=== PATIENT | female | born 1945 | race Caucasian/White ===

== ENCOUNTER 2017-11-22 10:33 | Emergency (ER) | payer MEDICARE, BC ==
[2017-11-22 11:07] VITALS: BP 131/63
--- NOTE | 2017-11-22 12:53 | UC ---
Respiratory Complaint HPI - HPI Summary HPI Summary: Patient presents with a past medical history of foot allergies, causing rhinorrhea and chest congestion. She admits that during the holidays she will eat "alot of junk", and presents today with complaints of increase nasal discharge, post nasal drip and chest congestion that "sits right at the base of her throat". She denies fever, chills, chest pain, dyspnea, abdominal pain, nausea, vomiting or diarrhea. She states these symptoms are consistent with what she has had in the past. - History of Current Complaint Chief Complaint: UCRespiratory Stated Complaint: SINUS ISSUE COUGH Time Seen by Provider: 11/22/17 12:03 Hx Obtained From: Patient Hx Last Menstrual Period: Years ago. ?: No Onset/Duration: Gradual Onset, Lasting Weeks Timing: Constant Pain Intensity: 0 Pain Scale Used: 0-10 Numeric Character: Cough: Productive Aggravating Factors: Allergens, Recumbent Position Alleviating Factors: OTC Meds, Upright Position, Spontaneous Resolution Associated Signs And Symptoms: Positive: Negative, URI, Nasal Congestion, Sinus Discomfort - Risk Factors Pulmonary Embolism Risk Factors: Negative Cardiac Risk Factors: Negative Pseudomonas Risk Factors: Negative Tuberculosis Risk Factors: Negative - Allergies/Home Medications Allergies/Adverse Reactions: Allergies Allergy/AdvReac Type Severity Reaction Status Date / Time Aspirin Allergy Severe Anaphylatic Verified 09/19/16 15:31 Shock Ibuprofen Allergy Severe Anaphylatic Verified 09/19/16 15:31 Shock Home Medications: Home Medications Phenylephrine W/ [id number] [Tussin Cf Cough & Cold Ad 5-10-100 mg/5Ml] 11/22/17 [ History] PMH/Surg Hx/FS Hx/Imm Hx Previously Healthy: Yes Other History Of: Negative For: HIV, Hepatitis B, Hepatitis C - Surgical History Surgical History: Yes Surgery Procedure, Year, and Place: tubal ligation - Family History Known Family History: Negative: Cardiac Disease, Hypertension - Social History Occupation: Retired Alcohol Use: Rare Substance Use Type: None Smoking Status (MU): Light Every Day Tobacco Smoker Type: Cigarettes Amount Used/How Often: 1-2 cigs per day Length of Time of Smoking/Using Tobacco: 50 years Have You Smoked in the Last Year: Yes Household Exposure Type: Cigarettes - Immunization History Most Recent Influenza Vaccination: 08/27/14 Review of Systems Constitutional: Negative Skin: Negative Eyes: Negative ENT: Ear Ache, Nasal Discharge, Sinus Congestion, Sinus Pain/Tenderness Respiratory: Cough Cardiovascular: Negative Gastrointestinal: Negative Genitourinary: Negative Motor: Negative Neurovascular: Negative Musculoskeletal: Negative Neurological: Negative Psychological: Negative Is Patient Immunocompromised?: No All Other Systems Reviewed And Are Negative: Yes Physical Exam Triage Information Reviewed: Yes Appearance: Well-Appearing Vital Signs: Initial Vital Signs Temp 98.6 F 11/22/17 11:01 Pulse 64 11/22/17 11:01 Resp 16 11/22/17 11:01 BP 131/63 11/22/17 11:01 Pulse Ox 99 11/22/17 11:01 Vital Signs Reviewed: Yes Eye Exam: Normal ENT Exam: Normal ENT: Positive: Pharyngeal erythema, Nasal congestion, Nasal drainage, TM bulging , TM dull, TM red, Hoarse voice, Sinus tenderness, Uvula midline Neck exam: Normal Neck: Positive: 1 Respiratory Exam: Normal Cardiovascular Exam: Normal Skin Exam: Normal UC Diagnostic Evaluation - Laboratory O2 Sat by Pulse Oximetry: 99 Respiratory Course/Dx - Course Course Of Treatment: Patient presents with a past medical history of food allergies that casue what appears to be a gustatory reponce and today she presents with five week onset complaints of increased nasal discharge, cough and post nasal drip. SHe has normal vital signs and is in no distress. She is going to be treated with zpk, and prednisone 20 mg twice daily for five days, for otitis media and bronchitis. I told her that if her symtpoms persist to follow up with ENT, she verbalized understanding and was in ageement with the discharge plan. - Differential Dx/Diagnosis Differential Diagnosis/HQI/PQRI: Bronchitis Provider Diagnoses: otitis media. bronchitis Discharge - Discharge Plan Condition: Stable Disposition: HOME Prescriptions: Azithromycin TAB* [Zithromax TAB (Z-KRISTINA) 250 mg #6 tabs] 250 mg PO DAILY #6 tab predniSONE TAB* [Deltasone TAB*] 10 mg PO BID #10 tab Patient Education Materials: Otitis Media (ED), Acute Bronchitis (ED) Referrals: Rusty Williamson DO [Primary Care Provider] - Additional Instructions: If your symptoms do not resolve follow up with your PCP.
== END 2017-11-22 12:19 | disposition home or self-care (01) ==
LOC: UCEAST 10:33
DX: J40 Bronchitis, not specified as acute or chronic (principal); H66.90 Otitis media, unspecified, unspecified ear; F17.210 Nicotine dependence, cigarettes, uncomplicated; Z88.6 Allergy status to analgesic agent
CPT/HCPCS: 99212; G0463

== ENCOUNTER 2017-12-06 13:27 | Emergency (ER) | payer MEDICARE, BC ==
[2017-12-06 13:37] VITALS: BP 126/60
[2017-12-06] MEDS ORDERED: Dextrose 50% Syringe 50 ML* 25 GM/50 ML SYRINGE IV PUSH ONE (14:33)
--- NOTE | 2017-12-06 14:51 | RAD ---
Indication: Cough. 2 views of the chest including dual energy PA views demonstrates no mediastinal shift. Heart is of normal size and configuration. Chronic interstitial disease is noted. No alveolar consolidation is noted. IMPRESSION: Chronic interstitial disease with no definite evidence of pneumonia.
--- NOTE | 2018-01-02 15:17 | UC ---
Respiratory Complaint HPI - HPI Summary HPI Summary: had similar sx end of October now URI Sx have returned - History of Current Complaint Hx Obtained From: Patient Hx Last Menstrual Period: Years ago. ?: No Onset/Duration: Gradual Onset Timing: Constant Severity Initially: Mild Severity Currently: Mild Pain Intensity: 0 Pain Scale Used: 0-10 Numeric Associated Signs And Symptoms: Positive: Negative <Freda Hammond - Last Filed: 01/02/18 15:29> <Sally Theodore - Last Filed: 01/02/18 15:34> - History of Current Complaint Chief Complaint: UCRespiratory Stated Complaint: URI Time Seen by Provider: 12/06/17 14:00 - Allergies/Home Medications Allergies/Adverse Reactions: Allergies Allergy/AdvReac Type Severity Reaction Status Date / Time MS Aspirin [Aspirin] Allergy Severe Anaphylatic Verified 09/19/16 15:31 Shock MS Ibuprofen [Ibuprofen] Allergy Severe Anaphylatic Verified 09/19/16 15:31 Shock PMH/Surg Hx/FS Hx/Imm Hx Previously Healthy: Yes Other History Of: Negative For: HIV, Hepatitis B, Hepatitis C - Surgical History Surgical History: Yes Surgery Procedure, Year, and Place: tubal ligation - Family History Known Family History: Negative: Cardiac Disease, Hypertension - Social History Occupation: Retired Lives: With Family Alcohol Use: Rare Substance Use Type: None Smoking Status (MU): Light Every Day Tobacco Smoker Type: Cigarettes Amount Used/How Often: 1-2 cigs per day Length of Time of Smoking/Using Tobacco: 50 years Have You Smoked in the Last Year: Yes Household Exposure Type: Cigarettes - Immunization History Most Recent Influenza Vaccination: 08/27/14 <Freda Hammond - Last Filed: 01/02/18 15:29> Review of Systems Constitutional: Negative Skin: Negative Eyes: Negative ENT: Sore Throat, Nasal Discharge Respiratory: Cough Cardiovascular: Negative Gastrointestinal: Negative Genitourinary: Negative Motor: Negative Neurovascular: Negative Musculoskeletal: Negative Neurological: Negative Psychological: Negative Is Patient Immunocompromised?: No All Other Systems Reviewed And Are Negative: Yes <Freda Hammond - Last Filed: 01/02/18 15:29> Physical Exam Triage Information Reviewed: Yes Appearance: Well-Appearing, No Pain Distress, Well-Nourished Vital Signs: Initial Vital Signs Temp 97.9 F 12/06/17 13:34 Pulse 74 12/06/17 13:34 Resp 18 12/06/17 13:34 BP 126/60 12/06/17 13:34 Pulse Ox 95 12/06/17 13:34 Vital Signs Reviewed: Yes Eye Exam: Normal Eyes: Positive: Conjunctiva Clear ENT Exam: Normal ENT: Positive: Normal ENT inspection, Hearing grossly normal, Pharynx normal, Nasal congestion, TMs normal, Uvula midline. Negative: Tonsillar swelling, Tonsillar exudate, Trismus, Muffled voice, Hoarse voice, Dental tenderness, Sinus tenderness Dental Exam: Normal Neck exam: Normal Neck: Positive: Supple, Nontender, No Lymphadenopathy Respiratory Exam: Normal Respiratory: Positive: Chest non-tender, Lungs clear, Normal breath sounds, No respiratory distress, No accessory muscle use Cardiovascular Exam: Normal Cardiovascular: Positive: RRR, No Murmur, Pulses Normal, Brisk Capillary Refill Musculoskeletal Exam: Normal Musculoskeletal: Positive: Strength Intact, ROM Intact Neurological Exam: Normal Neurological: Positive: Alert, Muscle Tone Normal Psychological Exam: Normal Skin Exam: Normal <Freda Hammond - Last Filed: 01/02/18 15:29> Vital Signs: Initial Vital Signs Temp 97.9 F 12/06/17 13:34 Pulse 74 12/06/17 13:34 Resp 18 12/06/17 13:34 BP 126/60 12/06/17 13:34 Pulse Ox 95 12/06/17 13:34 <Sally Theodore - Last Filed: 01/02/18 15:34> UC Diagnostic Evaluation - Laboratory O2 Sat by Pulse Oximetry: 95 <Freda Hammond - Last Filed: 01/02/18 15:29> Respiratory Course/Dx - Course Course Of Treatment: Flonase zyrtecgifty with pcp - Differential Dx/Diagnosis Provider Diagnoses: Allergic Rhinosinusitis <Freda Hammond - Last Filed: 01/02/18 15:29> Discharge <Freda Hammond - Last Filed: 01/02/18 15:29> <Sally Theodore - Last Filed: 01/02/18 15:34> - Discharge Plan Condition: Stable Disposition: HOME Prescriptions: Cetirizine* [ZyrTEC 10 MG TAB*] 10 mg PO DAILY #30 tab Fluticasone NASAL SPRAY 50MCG* [Flonase NASAL SPRAY 50MCG*] 2 spray BOTH NARES DAILY #1 btl Patient Education Materials: Chronic Cough (ED) Referrals: Rusty Williamson DO [Primary Care Provider] - 1 Week Attestation Statement User Type: Provider - I was available for consult. This patient was seen by the MARIANNE. The patient was not presented to, seen by, or examined by me. Cain <Sally Theodore - Last Filed: 01/02/18 15:34>
== END 2017-12-06 15:03 | disposition home or self-care (01) ==
LOC: UCEAST 13:27
DX: J30.9 Allergic rhinitis, unspecified (principal); J84.9 Interstitial pulmonary disease, unspecified; J02.9 Acute pharyngitis, unspecified; R05 Cough; Z88.6 Allergy status to analgesic agent; F17.210 Nicotine dependence, cigarettes, uncomplicated
CPT/HCPCS: 71046; 99212; G0463

== ENCOUNTER 2018-06-21 13:23 | Emergency (ER) | payer MEDICARE, BC ==
--- OUTSIDE RECORDS SUMMARY | 2018-06-21 13:30 | XMS REPORT ---
:1945 External Reference #:[id number] Author Organization [facility] Address [address] [place] [address] Phone [phone] Care Team Providers Name Role Phone HCP given Primary Care Physician Unavailable Payers Type Date Identification Numbers Payment Provider Subscriber Medicare Primary Effective: Policy Number: [facility] Nargis Ty 2010 [id number] Services PayID: [id number] [address] [place] [address] Medigap Part B Policy Number: [id number] [facility] Leandro Ty PayID: [id number] [address] [address] [place] [address] Problems Date Description Provider Status Onset: 07/06/2011 Onychomycosis Blair Sarabia Active Onset: 02/10/2015 Prolapse of urethra Rusty Williamson 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 Active Onset: 02/10/2015 Internal hemorrhoids without Rusty Williamson D.O. Active complication Family History Date Family Member(s) Problem(s) Comments General 2 living sisters and 1 brother are well Father 68 cirrhosis Mother Allergic Rhinitis Mother Glaucoma Mother Hypercholesterolemia Mother 72 pancreatic cancer, vascular disease, had strokes post hip fracture First Son Allergic Rhinitis First Son Alvaro 03-07-65 Second Son Jatinder 10-27-70 First Brother 59 heart disease alpha 1 anti-trypsin deficiency, cardiac disease First Sister 53 alpha 1 anti-trypsin deficiency, COPD Paternal Grandmother diabetic Maternal Grandfather cancer, unknown primary Social History Type Date Description Comments Education trade school General with 2 sons, 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 Bakes a lot for the [employer], summer busy. Cigarette Use 2006 Current Cigarette Smoker 1-5 resumed smoking after one Cigarettes Daily year off. 2 cigarettes ETOH Use Rare Alcohol Use Recreational Drug Use Denies Drug Use Smoking Light tobacco smoker (10 or 2 cigarettes a day 1ppw at fewer cigarettes/day) age 25. currently 1/2ppw. < 30pack year history Daily Caffeine Does not consume caffeine Sun Exposure Uses sunscreen with greater than 30 SPF Seat Belt/Car Seat Always uses a seat belt Contraceptive Methods Does not currently use any method of control Age 1st [place] First intercourse was at age 20 # Partners in a Lifetime The patient has had 1 sexual partner Allergies, Adverse Reactions, Alerts Date Description Reaction Status Severity Comments 07/09/2012 Aspirin active 07/09/2012 Ibuprofen active 07/08/2010 Mucinex active Medications Medication Date Status Form Strength Qnty SIG Indications Ordering Provider Ginkgo Biloba 05/21/ Active Capsules 120mg Daily Unknown 2017 Echinacea 05/21/ Active Capsules 500mg as Needed Unknown 2017 Resveratrol 05/21/ Active Capsules 250mg 2 capsules Unknown 2017 (500 mg) daily Krill Oil Antwon 05/07/ Active Capsules 350mg 1 daily Unknown Red 2018 Coq10 05/07/ Active 50mg 1 po daily Unknown 2018 Zyrtec Allergy 05/07/ Active Tablets 10mg 1 by mouth Unknown 2018 every day Multivitamin 05/07/ Active Chewtabs 1 daily Unknown Gummies Womens 2018 Vitamin B 07/09/ Active Tablets 1 tab q day Unknown Complex 2013 Pycnogenol 07/09/ Active 60mg 1 q day Unknown 2012 Vitamin D-3 07/05/ Active Tablets 1000Unit OTC One Tablet Unknown 2010 PO Daily Probiotic 07/05/ Active Capsules 30Billion OTC One Tab PO Unknown Acidophilus 2010 Daily Grape Seed 07/05/ Active Capsules 50mg OTC 1 po prn Unknown 2010 Lowman 07/05/ Active 150mg OTC One PO Unknown 2010 Daily as Needed Silver Biotics 07/05/ Active OTC 1 tsp. Unknown 2010 daily prn Vit C 06/19/ Active 500mg 0unit 2 po qd mack 2005 s Tylenol 06/19/ Active Suppositor 325mg 10uni 1/2 Q 4H mack 2005 ts prn Temp N-Acetyl / Active 600mg otc one po Unknown Cystine 0000 daily Calcium With 00/00/ Active 1000mg/50 OTC six po Unknown Mag Citrate And 0000 0mg/100 daily D3 Iu Valacyclovir 02/07/ Hx Tablets 1gm 21tab 1 three B02.9 Sopchak, HCL 2015 - s times a day Rusty, 02/14/ for 7 days D.O. 2015 Lidocaine 02/07/ Hx Patches 5% 90uni apply 12 B02.9 Clay, 2015 - ts hours on , 02/14/ hours off D.O. 2015 as needed to area of pain. Gabapentin 02/07/ Hx Capsules 100mg 90cap 1 tabs by B02.9 Clay 2015 - mouth three Rusty, 03/09/ times a day D.O. 2015 Hydrocodone-Aurelio 01/24/ Hx Tablets 5-325mg Take 1-2 Unknown taminophen 2015 - Tablets By 01/30/ Mouth Every 2015 6 Hours as Needed For Pain Baclofen 12/31/ Hx Tablets 10mg 30tab take 1 M54.5 Clay 2015 - tablet by Rusty, 12/31/ mouth at D.O. 2016 night for muscle spasms Nasonex 03/30/ Hx Suspension 50mcg/Act 3unit 2 sprays to 461.0 Clay 2014 - both Rusty, 07/15/ nostrils D.O. 2014 twice daily Fluticasone 03/30/ Hx Suspension 50mcg/Act 3unit 2 sprays Clay Propionate 2014 - into each Rusty, 07/15/ nostril D.O. 2014 twice a day for nasal congestion Amoxicillin/Cla 03/26/ Hx Tablets 875-125mg 20tab 1 tablet Unknown vulanate 2014 - twice daily Potassium 04/05/ until 2015 finished Gavilyte-C 03/02/ Hx Solution 240gm take as Unknown 2015 - Rec directed 2014 Alendronate 08/26/ Hx Tablets 35mg 12tab 1 tab per 733.00 Silcoff, Sodium 2012 - s week 30 Yaron, 07/11/ minutes M.D. 2013 before meal, with 8 oz water. do not lie down for 30 minutes after taking Triple Arrey 07/09/ Hx Capsules DR 1000mg 1 q day Unknown Complex 2012 - 2017 Terbinafine HCL 12/10/ Hx Tablets 250mg 90tab 1 po qd 110.1 Rosinaharish 2013 - s sterling, 07/10/ Louis, 2013 DPM Vitamin B1 07/05/ Hx Tablets 100mg OTC 1 po qd Unknown 2010 - 2012 Pycnogenol 07/05/ Hx Capsules 30mg OTC 2 Tabs PO Unknown 2010 - Daily 2011 Echinacea Herb 07/05/ Hx Capsules 400mg OTC 3-6 X Day Unknown 2010 - prn When 07/10/ Coming Down 2012 With Illness Allergy Relief 07/05/ Hx Tablets 25mg OTC 1-2 Tabs PO Unknown 2010 - Daily prn 2017 Krill Oil 07/05/ Hx Capsules 1000mg 2 Tabs PO Unknown 2010 - Daily 2012 Miracle 2000 Hx one capful Unknown Liquid 2010 - daily Multivitamin 2017 Cuercetin 07/05/ Hx 500mg otc 2 po daily Unknown 2010 - 2012 Azithromycin 07/26/ Hx Tablets 250mg 6tabs 2 tabs day 466.0 Sang, 2009 - one, one Yaron, 08/03/ tab days M.D. 2009 2-5 Vit E 06/19/ Hx 400Iu 1 [facility] 2005 - 2012 Garlic 06/19/ Hx Tablets [facility] - 2012 Ginko Biloba 06/19/ Hx Capsules 60mg 2 PO qd klepack 24% 2005 - 2012 Triple Arrey 06/19/ Hx 1200mg 1 PO qd klepack 2005 - 2012 Calcium 06/19/ Hx Gelcaps 550mg;125 [facility] Carbonate & 2006 - mg Magnesium 07/05/ Hydroxide 2010 OTC 00/00/ Hx prn Unknown Decongestant - 2015 OTC 00/00/ Hx prn Unknown Antihistamine 2015 Colloidal / Hx as directed Unknown Silver - 2014 Immunizations CPT Code Status Date Vaccine Lot # [id number] Given 07/26/2017 Influenza Virus Vaccine, Quadrivalent, Split, [id number] Preservative Free 60034 Given 09/26/2016 Influenza Virus Vaccine, Quadrivalent, Split, Preservative Free 84401 Given 08/18/2015 Flu, Split Virus 3Yrs 03416 Given 07/16/2015 Prevnar 13 [id number] 00858 Given 09/30/2014 Flu, Split Virus 3Yrs 75028 Given 09/15/2013 Flu, Split Virus 3Yrs 50117 Given 07/10/2013 Zostavax [id number] 86888 Given 09/03/2012 Flu, Split Virus 3Yrs 50505 Given 07/09/2012 Pneumococcal Immunization [id number] 34579 Given 10/17/2011 Flu, Split Virus 3Yrs 76406 Given 11/15/2007 Td Immunization TD-166 Vital Signs Date Vital Result Comment 05/22/2018 BP Systolic 122 mmHg BP Diastolic 60 mmHg Weight 129.00 lb 05/08/2018 BP Systolic 138 mmHg BP Diastolic 72 mmHg Height 64 inches 5'4" Weight 130.00 lb BMI (Body Mass Index) 22.3 kg/m2 07/26/2017 BP Systolic 124 mmHg BP Diastolic 58 mmHg Height 65 inches 5'5" with sneakers Weight 134.00 lb with sneakers BMI (Body Mass Index) 22.3 kg/m2 07/25/2016 BP Systolic 130 mmHg BP Diastolic 70 mmHg Height 65.25 inches 5'5.25" Weight 142.00 lb BMI (Body Mass Index) 23.4 kg/m2 03/09/2016 BP Systolic 116 mmHg BP Diastolic 58 mmHg Weight 141.00 lb w/shoes 02/08/2016 BP Systolic 131 mmHg BP Diastolic 62 mmHg Heart Rate 76 /min Body Temperature 98.2 F 02/04/2016 BP Systolic 128 mmHg BP Diastolic 64 mmHg Heart Rate 73 /min Height 65.75 inches 5'5.75" with shoes Weight 145.00 lb with shoes BMI (Body Mass Index) 23.6 kg/m2 12/31/2015 Weight 147.00 lb 07/16/2015 BP Systolic 126 mmHg BP Diastolic 62 mmHg Height 65.5 inches 5'5.50" shoes on Weight 138.00 lb shoes on BMI (Body Mass Index) 22.6 kg/m2 03/30/2015 BP Systolic 136 mmHg BP Diastolic 83 mmHg Heart Rate 75 /min Body Temperature 97.7 F Weight 139.00 lb 02/10/2015 BP Systolic 120 mmHg BP Diastolic 70 mmHg Body Temperature 98.1 F Height 64.50 inches 5'4.50" Weight 142.00 lb BMI (Body Mass Index) 24.0 kg/m2 07/14/2014 BP Systolic 116 mmHg BP Diastolic 60 mmHg Heart Rate 77 /min Height 64.5 inches 5'4.50" Weight 133.00 lb BMI (Body Mass Index) 22.5 kg/m2 07/10/2013 BP Systolic 138 mmHg BP Diastolic 64 mmHg Heart Rate 68 /min Height 64.25 inches 5'4.25" Weight 136.00 lb BMI (Body Mass Index) 23.2 kg/m2 12/10/2012 BP Systolic 134 mmHg BP Diastolic 62 mmHg Heart Rate 72 /min Height 64.5 inches 5'4.50" Weight 137.00 lb BMI (Body Mass Index) 23.2 kg/m2 07/09/2012 BP Systolic 130 mmHg BP Diastolic 70 mmHg Heart Rate 75 /min Height 64.5 inches 5'4.50" Weight 142.00 lb BMI (Body Mass Index) 24.0 kg/m2 07/06/2011 BP Systolic 131 mmHg BP Diastolic 62 mmHg Heart Rate 72 /min Height 64.50 inches 5'4.50" Weight 145.00 lb BMI (Body Mass Index) 24.5 kg/m2 07/26/2010 BP Systolic 112 mmHg BP Diastolic 66 mmHg Heart Rate 72 /min O2 % BldC Oximetry 96 % Body Temperature 98.3 F Weight 146.00 lb 05/03/2010 BP Systolic 100 mmHg BP Diastolic 52 mmHg Heart Rate 70 /min Height 64.25 inches 5'4.25" Weight 146.00 lb BMI (Body Mass Index) 24.9 kg/m2 Last Menstrual Period 0 05/12/2009 BP Systolic 120 mmHg BP Diastolic 62 mmHg Height 65 inches 5'5" Weight 143.00 lb BMI (Body Mass Index) 23.8 kg/m2 05/27/2008 BP Systolic 120 mmHg BP Diastolic 68 mmHg Body Temperature 98.4 F Height 64 inches 5'4" Weight 130.00 lb BMI (Body Mass Index) 22.3 kg/m2 Last Menstrual Period 0 05/05/2008 BP Systolic 104 mmHg BP Diastolic 54 mmHg Height 64 inches 5'4" Weight 134.50 lb BMI (Body Mass Index) 23.1 kg/m2 11/15/2007 BP Systolic 122 mmHg BP Diastolic 64 mmHg Body Temperature 97.7 F Height 64 inches 5'4" Weight 143.50 lb BMI (Body Mass Index) 24.6 kg/m2 07/11/2006 BP Systolic 112 mmHg BP Diastolic 56 mmHg Height 64 inches 5'4" Weight 156.00 lb BMI (Body Mass Index) 26.8 kg/m2 06/19/2006 BP Systolic 110 mmHg BP Diastolic 66 mmHg Height 64 inches 5'4" Weight 158.00 lb BMI (Body Mass Index) 27.1 kg/m2 Last Menstrual Period 0 Results Test Date Test Result H/L Range Note Laboratory test finding 05/14/2018 C Difficile B PCR SEE RESULT BELOW 1 , 2 Stool Calprotectin 60.7 g/G 1, 3 Stool Occult Blood 05/14/2018 Stool Occult Blood, SEE RESULT 1, 4 Diag Diag BELOW Laboratory test 03/07/2018 Hemoglobin A1c 5.8 % High 4.0-5.6 5 finding (Glyco HGB) Laboratory test 08/09/2017 Vitamin D Total 36.6 ng/mL 30-50 6 finding 25(Oh) CBC Auto Diff 08/09/2017 White Blood Count 8.0 10^3/uL 3.5-10.8 Red Blood Count 5.09 10^6/uL 4.0-5.4 Hemoglobin 14.2 g/dL 12.0-16.0 Hematocrit 43 % 35-47 Mean Corpuscular Volume 85 fL 80-97 Mean Corpuscular Hemoglobin 28 pg 27-31 Mean Corpuscular HGB Conc 33 g/dL 31-36 Red Cell Distribution Width 14 % 10.5-15 Platelet Count 228 10^3/uL 150-450 Mean Platelet Volume 12 um3 High 7.4-10.4 7 Abs Neutrophils 5.6 10^3/uL 1.5-7.7 Abs Lymphocytes 1.6 10^3/uL 1.0-4.8 Abs Monocytes 0.5 10^3/uL 0-0.8 Abs Eosinophils 0.3 10^3/uL 0-0.6 Abs Basophils 0.1 10^3/uL 0-0.2 Abs Nucleated RBC 0.03 10^3/uL Granulocyte % 69.6 % 38-83 Lymphocyte % 20.2 % Low 25-47 Monocyte % 5.9 % 1-9 Eosinophil % 3.2 % 0-6 Basophil % 1.1 % 0-2 Nucleated Red Blood Cells % 0.4 Comp Metabolic Panel 08/09/2017 Sodium 139 mmol/L 133-145 Potassium 4.2 mmol/L 3.5-5.0 Chloride 102 mmol/L 101-111 Co2 Carbon Dioxide 33 mmol/L High 22-32 Anion Gap 4 mmol/L 2-11 Glucose 84 mg/dL 70-100 Blood Urea Nitrogen 17 mg/dL 6-24 Creatinine 1.05 mg/dL High 0.51-0.95 BUN/Creatinine Ratio 16.2 8-20 Calcium 9.5 mg/dL 8.6-10.3 Total Protein 6.8 g/dL 6.4-8.9 Albumin 4.1 g/dL 3.2-5.2 Globulin 2.7 g/dL 2-4 Albumin/Globulin Ratio 1.5 1-3 Total Bilirubin 0.60 mg/dL 0.2-1.0 Alkaline Phosphatase 71 U/L 34-104 Alt 13 U/L 7-52 Ast 20 U/L 13-39 Egfr Non- 51.5 >60 Egfr 66.3 >60 8 Lipid Profile (Trig/Chol/HDL) 08/09/2017 Triglycerides 107 mg/dL 9 Cholesterol 189 mg/dL 10 HDL Cholesterol 43.8 mg/dL 11 LDL Cholesterol 124 mg/dL 12 Laboratory test finding 08/09/2017 TSH (Thyroid Stim 3.89 mcIU/mL 0.34- 5.60 13 Horm) Laboratory test finding 08/04/2016 Vitamin D Total 25(Oh) 37.9 ng/mL 30- 50 CBC Auto Diff 08/04/2016 White Blood Count 7.6 10^3/uL 3.5-10.8 Red Blood Count 4.78 10^6/uL 4.0-5.4 Hemoglobin 13.3 g/dL 12.0-16.0 Hematocrit 41 % 35-47 Mean Corpuscular Volume 85 fL 80-97 Mean Corpuscular Hemoglobin 28 pg 27-31 Mean Corpuscular HGB Conc 33 g/dL 31-36 Red Cell Distribution Width 14 % 10.5-15 Platelet Count 224 10^3/uL 150-450 Mean Platelet Volume 11 um3 High 7.4-10.4 Abs Neutrophils 4.8 10^3/uL 1.5-7.7 Abs Lymphocytes 2.0 10^3/uL 1.0-4.8 Abs Monocytes 0.5 10^3/uL 0-0.8 Abs Eosinophils 0.1 10^3/uL 0-0.6 Abs Basophils 0.1 10^3/uL 0-0.2 Abs Nucleated RBC 0.01 10^3/uL Granulocyte % 63.0 % 38-83 Lymphocyte % 26.5 % 25-47 Monocyte % 6.9 % 1-9 Eosinophil % 1.8 % 0-6 Basophil % 1.8 % 0-2 Nucleated Red Blood Cells % 0.1 Comp Metabolic Panel 08/04/2016 Sodium 138 mmol/L 133-145 Potassium 4.5 mmol/L 3.5-5.0 Chloride 102 mmol/L 101-111 Co2 Carbon Dioxide 29 mmol/L 22-32 Anion Gap 7 mmol/L 2-11 Glucose 71 mg/dL 70-100 Blood Urea Nitrogen 16 mg/dL 6-24 Creatinine 0.98 mg/dL High 0.51-0.95 BUN/Creatinine Ratio 16.3 8-20 Calcium 9.3 mg/dL 8.6-10.3 Total Protein 6.5 g/dL 6.4-8.9 Albumin 3.9 g/dL 3.2-5.2 Globulin 2.6 g/dL 2-4 Albumin/Globulin Ratio 1.5 1-3 Total Bilirubin 0.80 mg/dL 0.2-1.0 Alkaline Phosphatase 63 U/L 34-104 Alt 13 U/L 7-52 Ast 20 U/L 13-39 Egfr Non- 55.9 >60 Egfr 71.9 >60 14 Laboratory test 08/04/2016 TSH (Thyroid Stim Horm) 2.84 mcIU/mL 0.34- 5.60 finding Lipid Profile 08/04/2016 Triglycerides 94 mg/dL 15 (Trig/Chol/HDL) Cholesterol 189 mg/dL 16 HDL Cholesterol 47.0 mg/dL 17 LDL Cholesterol 123 mg/dL 18 Comp Metabolic Panel 07/23/2015 Sodium 138 mmol/L 133-145 Potassium 4.2 mmol/L 3.5-5.0 Chloride 101 mmol/L 101-111 Co2 Carbon Dioxide 32 mmol/L 22-32 Anion Gap 5 mmol/L 2-11 Glucose 90 mg/dL 70-100 Blood Urea Nitrogen 19 mg/dL 6-24 Creatinine 1.00 mg/dL High 0.51-0.95 BUN/Creatinine Ratio 19.0 8-20 Calcium 9.5 mg/dL 8.6-10.3 Total Protein 7.2 g/dL 6.4-8.9 Albumin 4.3 g/dL 3.2-5.2 Globulin 2.9 g/dL 2-4 Albumin/Globulin Ratio 1.5 1-3 Total Bilirubin 0.70 mg/dL 0.2-1.0 Alkaline Phosphatase 70 U/L 34-104 Alt 16 U/L 7-52 Ast 22 U/L 13-39 Egfr Non- 54.8 >60 Egfr 70.5 >60 19 Laboratory test finding 07/23/2015 Vitamin D Total 25(Oh) 38.5 ng/mL 30- 50 TSH (Thyroid Stim Horm) 3.44 ?IU/mL 0.34-5.60 Hepatitis C Antibody Nonreactive Nonreactive CBC Auto Diff 07/23/2015 White Blood Count 7.1 10^3/uL 4.8-10.8 Red Blood Count 5.36 10^6/uL 4.0-5.4 Hemoglobin 15.0 g/dL 12.0-16.0 Hematocrit 47 % 35-47 Mean Corpuscular Volume 87 fL 80-97 Mean Corpuscular Hemoglobin 28 pg 27-31 Mean Corpuscular HGB Conc 32 g/dL 31-36 Red Cell Distribution Width 14 % 10.5-15 Abs Neutrophils 4.6 10^3/uL 1.5-7.7 Abs Lymphocytes 1.7 10^3/uL 1.0-4.8 Abs Monocytes 0.5 10^3/uL 0-0.8 Abs Eosinophils 0.2 10^3/uL 0-0.6 Abs Basophils 0.1 10^3/uL 0-0.2 Abs Nucleated RBC 0.01 10^3/uL Granulocyte % 64.8 % 38-83 Lymphocyte % 24.5 % Low 25-47 Monocyte % 6.7 % 1-9 Eosinophil % 3.1 % 0-6 Basophil % 0.9 % 0-2 Nucleated Red Blood Cells % 0.1 Platelet Count 212 10^3/uL 150-450 20 Mean Platelet Volume 11 um3 High 7.4-10.4 Lipid Profile (Trig/Chol/HDL) 07/23/2015 Triglycerides 103 mg/dL 21 Cholesterol 189 mg/dL 22 HDL Cholesterol 44.8 mg/dL 23 LDL Cholesterol 124 mg/dL 24 Ua Inhouse 02/10/2015 Ua Glucose - Ua Bilirubin - Ua Ketones - Ua Specific Riley 1.010 Ua Blood - Ua PH 5.0 Ua Protein - Ua Urobilinogen - Ua Nitrite - Ua Leukocytes - Basic Metabolic Panel 2014 Sodium 137 mmol/L 133-145 25 Potassium 4.1 mmol/L 3.7-5.6 25 Chloride 102 mmol/L 101-111 25 Co2 Carbon Dioxide 29 mmol/L 22-32 25 Anion Gap 6 mmol/L 2-11 25 Glucose 88 mg/dL 70-100 25 Blood Urea Nitrogen 20 mg/dL 6-24 25 Creatinine 1.11 mg/dL High 0.51-0.95 25 BUN/Creatinine Ratio 18.0 8-20 25 Calcium 9.8 mg/dL 8.6-10.3 25 Egfr Non- 48.7 >60 25 Egfr 62.7 >60 25, 26 Lipid Profile (Trig/Chol/HDL) 2014 Triglycerides 100 mg/dL 25, 27 Cholesterol 173 mg/dL 25, 28 HDL Cholesterol 46.7 mg/dL 25, 29 LDL Cholesterol 106 mg/dL 25, 30 CBC Auto Diff 2014 White Blood Count 7.2 10^3/uL 4.8-10.8 25 Red Blood Count 4.84 10^6/uL 4.0-5.4 25 Hemoglobin 13.8 g/dL 12.0-16.0 25 Hematocrit 41 % 35-47 25 Mean Corpuscular Volume 85 fL 80-97 25 Mean Corpuscular Hemoglobin 29 pg 27-31 25 Mean Corpuscular HGB Conc 34 g/dL 31-36 25 Red Cell Distribution Width 14 % 10.5-15 25 Platelet Count 208 10^3/uL 150-450 25 Mean Platelet Volume 11 um3 High 7.4-10.4 25 Abs Neutrophils 4.9 10^3/uL 1.5-7.7 25 Abs Lymphocytes 1.8 10^3/uL 1.0-4.8 25 Abs Monocytes 0.4 10^3/uL 0-0.8 25 Abs Eosinophils 0.1 10^3/uL 0-0.6 25 Abs Basophils 0.1 10^3/uL 0-0.2 25 Abs Nucleated RBC 0 10^3/uL 25 Granulocyte % 67.3 % 38-83 25 Lymphocyte % 24.5 % Low 25-47 25 Monocyte % 6.0 % 1-9 25 Eosinophil % 1.4 % 0-6 25 Basophil % 0.8 % 0-2 25 Nucleated Red Blood Cells % 0 25 Occult Blood,Triple 08/05/2013 Misc x3 neg Ua Inhouse 07/10/2013 Ua Glucose - Ua Bilirubin - Ua Ketones - Ua Specific Riley 1.005 Ua Blood - Ua PH 5.0 Ua Protein - Ua Urobilinogen - Ua Nitrite - Ua Leukocytes - Laboratory test finding 07/10/2013 Hemoglobin A1c 5.7 CBC Auto Diff 07/05/2013 White Blood Count 6.8 10^3/uL 4.8-10.8 Red Blood Count 4.92 10^6/uL 4.0-5.4 Hemoglobin 14.5 g/dL 12.0-16.0 Hematocrit 43 % 35-47 Mean Corpuscular Volume 87 fL 80-97 Mean Corpuscular Hemoglobin 30 pg 27-31 Mean Corpuscular HGB Conc 34 g/dL 31-36 Red Cell Distribution Width 14 % 10.5-15 Platelet Count 199 10^3/uL 150-450 Mean Platelet Volume 12 um3 High 7.4-10.4 31 Abs Neutrophils 4.3 10^3/uL 1.5-7.7 Abs Lymphocytes 1.7 10^3/uL 1.0-4.8 Abs Monocytes 0.4 10^3/uL 0-0.8 Abs Eosinophils 0.3 10^3/uL 0-0.6 Abs Basophils 0 10^3/uL 0-0.2 Abs Nucleated RBC 0 10^3/uL Granulocyte % 63.5 % 38-83 Lymphocyte % 25.2 % 25-47 Monocyte % 6.6 % 1-9 Eosinophil % 4.1 % 0-6 Basophil % 0.6 % 0-2 Nucleated Red Blood Cells % 0 Basic Metabolic Panel 07/05/2013 Sodium 136 mmol/L 133-145 Potassium 4.1 mmol/L 3.5-5.0 Chloride 102 mmol/L 101-111 Co2 Carbon Dioxide 30.0 mmol/L 22-32 Anion Gap 4.0 mmol/L 2-11 Glucose 92 mg/dL 70-100 Blood Urea Nitrogen 21 mg/dL 6-24 Creatinine 1.00 mg/dL 0.50-1.40 BUN/Creatinine Ratio 21.0 High 8-20 Calcium 9.3 mg/dL 8.1-9.9 Egfr Non- 55.3 >60 Egfr 71.1 >60 32 Lipid Profile (Trig/Chol/HDL) 07/05/2013 Triglycerides 59 mg/dL 40-200 Cholesterol 177 mg/dL Less than 200 HDL Cholesterol 47 mg/dL 40-60 33 Cholesterol/HDL Ratio 3.8 Average 1-4.44 LDL Cholesterol 118.2 High Less Than 100 34 Varicella Zoster Igg 06/28/2013 Varicella-Zoster IgG Antibody Positive 35 Varicella IgG Antibody Index 2.6 36 Comp Metabolic Panel 12/12/2012 Sodium 140 mmol/L 133-145 Potassium 4.3 mmol/L 3.5-5.0 Chloride 101 mmol/L 101-111 Co2 Carbon Dioxide 31.0 mmol/L 22-32 Anion Gap 8.0 mmol/L 2-11 Glucose 74 mg/dL 70-100 Blood Urea Nitrogen 23 mg/dL 6-24 Creatinine 1.00 mg/dL 0.50-1.40 BUN/Creatinine Ratio 23.0 High 8-20 Calcium 9.7 mg/dL 8.1-9.9 Total Protein 7.2 g/dL 6.2-8.1 Albumin 4.1 g/dL 3.2-5.2 Globulin 3.1 g/dL 2-4 Albumin/Globulin Ratio 1.3 1-3 Total Bilirubin 0.9 mg/dL 0.4-1.5 Alkaline Phosphatase 66 U/L 30-110 Alt 28 U/L 14-54 Ast 36 U/L 12-42 Egfr Non- 55.3 >60 Egfr 71.1 >60 37 Lipid Profile (Trig/Chol/HDL) 12/12/2012 Triglycerides 87 mg/dL 40-200 Cholesterol 195 mg/dL Less than 200 HDL Cholesterol 52 mg/dL 40-60 38 Cholesterol/HDL Ratio 3.8 Average 1-4.44 LDL Cholesterol 125.6 mg/dL High Less Than 100 39 Laboratory test finding 12/10/2012 Hemoglobin A1c 5.9 Creatinine Clearance 10/26/2012 Urine Random Creatinine 63.8 mg/dL Creatinine 1.0 mg/dL 0.5-1.4 Creatinine Clearance 89 mL/min 80-125 Urine Collection Time 24 Urine Total Volume 2000 ML Total Protein 24HR Urine 10/26/2012 Urine Random Total Protein 5 mg/dL Urine Total Protein/24HR 100 MG/24HR 0-165 Comp Metabolic Panel 10/26/2012 Sodium 139 mmol/L 133-145 Potassium 4.3 mmol/L 3.5-5.0 Chloride 101 mmol/L 101-111 Co2 Carbon Dioxide 32.0 mmol/L 22-32 Anion Gap 6.0 mmol/L 2-11 Glucose 152 mg/dL High 70-100 Blood Urea Nitrogen 19 mg/dL 6-24 Creatinine 1.10 mg/dL 0.50-1.40 One Over Creatinine 0.90 BUN/Creatinine Ratio 17.3 8-20 Calcium 9.1 mg/dL 8.1-9.9 Total Protein 6.3 GM/DL 6.2-8.1 Albumin 3.7 GM/DL 3.2-5.2 Globulin 2.6 GM/DL 2-4 Albumin/Globulin Ratio 1.4 1-3 Total Bilirubin 0.7 mg/dL 0.4-1.5 Alkaline Phosphatase 73 U/L 30-110 Alt 22 U/L 14-54 Ast 28 U/L 12-42 Egfr Non- 49.5 >60 Egfr 63.7 >60 40 CBC Auto Diff 10/24/2012 White Blood Count 7.9 10^3/uL 4.8-10.8 Red Blood Count 4.78 10^6/uL 4.0-5.4 Hemoglobin 13.8 g/dL 12.0-16.0 Hematocrit 42 % 35-47 Mean Corpuscular Volume 87 fL 80-97 Mean Corpuscular Hemoglobin 29 pg 27-31 Mean Corpuscular HGB Conc 33 g/dL 31-36 Red Cell Distribution Width 14 % 10.5-15 Platelet Count 187 10^3/uL 150-450 Mean Platelet Volume 12 um3 High 7.4-10.4 Abs Neutrophils 5.5 10^3/uL 1.5-7.7 Abs Lymphocytes 1.7 10^3/uL 1.0-4.8 Abs Monocytes 0.5 10^3/uL 0-0.8 Abs Eosinophils 0.1 10^3/uL 0-0.6 Abs Basophils 0 10^3/uL 0-0.2 Abs Nucleated RBC 0 10^3/uL Granulocyte % 69.8 % 38-83 Lymphocyte % 22.0 % Low 25-47 Monocyte % 6.0 % 1-9 Eosinophil % 1.7 % 0-6 Basophil % 0.5 % 0-2 Nucleated Red Blood Cells % 0.1 Comp Metabolic Panel 10/24/2012 Sodium 139 mmol/L 133-145 Potassium 4.5 mmol/L 3.5-5.0 Chloride 103 mmol/L 101-111 Co2 Carbon Dioxide 31.0 mmol/L 22-32 Anion Gap 5.0 mmol/L 2-11 Glucose 51 mg/dL Low 70-100 Blood Urea Nitrogen 22 mg/dL 6-24 Creatinine 1.30 mg/dL 0.50-1.40 BUN/Creatinine Ratio 16.9 8-20 Calcium 9.5 mg/dL 8.1-9.9 Total Protein 6.1 GM/DL Low 6.2-8.1 Albumin 3.8 GM/DL 3.2-5.2 Globulin 2.3 GM/DL 2-4 Albumin/Globulin Ratio 1.7 1-3 Total Bilirubin 0.6 mg/dL 0.4-1.5 Alkaline Phosphatase 70 U/L 30-110 Alt 21 U/L 14-54 Ast 25 U/L 12-42 Egfr Non- 40.9 >60 Egfr 52.5 >60 41 Liver Function Panel 10/24/2012 Direct Bilirubin 0.1 mg/dL 0.1-0.5 Indirect Bilirubin 0.5 mg/dL 0.3-1.0 Lipid Profile (Trig/Chol/HDL) 08/01/2012 Triglyceride 106 mg/dL 40-200 Cholesterol 209 mg/dL High Less Than 200 42 High Density Lipoprotein 44 mg/dL 40-60 43 Cholesterol/HDL Ratio 4.75 AVERAGE High 1-4.44 Low Density Lipoprotein 144 mg/dL High Less Than 100 44 Comp Metabolic Panel 08/01/2012 Sodium 139 mmol/L 135-145 Potassium 4.0 mmol/L 3.5-5.0 Chloride 102 mmol/L 101-111 Co2 (Carbon Dioxide) 32.0 mmol/L 22-32 Anion Gap 5.0 mmol/L 2-11 45 Glucose 89 mg/dL 70-100 BUN 15 mg/dL 6-24 Creatinine 1.0 mg/dL 0.50-1.40 One Over Creatinine 1.00 BUN/Creatinine Ratio 15.0 8-20 Calcium 9.1 mg/dL 8.1-9.9 Total Protein 6.3 GM/DL 6.2-8.1 Albumin 3.7 GM/DL 3.2-5.2 Globulin 2.6 GM/DL 2-4 Albumin/Globulin Ratio 1.4 1-3 Bilirubin Total 0.7 mg/dL 0.4-1.5 46 Alkaline Phosphatase 80 U/L 30-110 Alt (SGPT) 19 U/L 14-54 Ast (Sgot) 25 U/L 12-42 eGFR Non- 55.3 > 60 eGFR 71.1 > 60 47 CBC Auto Diff 08/01/2012 White Blood Count 6.9 CUMM 4.8-10.8 Red Cell Count 4.67 CUMM 4.2-5.4 Hemoglobin 14.1 g/dL 12.0-16.0 Hematocrit 41 % 35-47 Mean Corpuscular Volume 87 um3 79-97 Mean Corpuscular Hemoglob 30 pg 27-31 Mean Corpuscular HGB Cone 35 g/dL 32-36 Redcell Distribution WDTH 14 % 10.5-15 Platelet Count 189 CUMM 150-450 Mean Platelet Volume 11.8 um3 High 7.4-10.4 Gran % 66.1 % 38-83 Lymph % 23.1 % 20-45 Mononuclear % 6.7 % 1-9 Eosinophil % 3.5 % 0-6 Basophil % 0.6 % 0-2 Abs Lymphs 1.6 1.0-4.8 Abs Mononuclear 0.5 0-0.8 Absolute Neutrophil Count 4.6 1.5-7.7 Abs Eosinophils 0.2 0-0.6 Abs Basophils 0 0-0.2 Ua Inhouse 07/09/2012 Ua Glucose - Ua Bilirubin - Ua Ketones - Ua Specific Riley 1.010 Ua Blood - Ua PH 6.0 Ua Protein - Ua Urobilinogen - Ua Nitrite - Ua Leukocytes - Laboratory test finding 07/09/2012 Occult Blood - Stool neg x3 CBC Auto Diff 07/15/2011 White Blood Count 6.4 CUMM 4.8-10.8 Red Cell Count 5.00 CUMM 4.2-5.4 Hemoglobin 14.5 g/dL 12.0-16.0 Hematocrit 43 % 35-47 Mean Corpuscular Volume 86 um3 79-97 Mean Corpuscular Hemoglob 29 pg 27-31 Mean Corpuscular HGB Cone 34 g/dL 32-36 [facility] Distribution WDTH 14 % 10.5-15 Platelet Count 175 CUMM 150-450 Mean Platelet Volume 14.4 um3 High 7.4-10.4 48 Comp Metabolic Panel 07/15/2011 Sodium 138 mmol/L 135-145 Potassium 4.0 mmol/L 3.5-5.0 Chloride 102 mmol/L 101-111 Co2 (Carbon Dioxide) 31.0 mmol/L 22-32 Anion Gap 5.0 mmol/L 2-11 49 Glucose 94 mg/dL 70-100 BUN 18 mg/dL 6-24 Creatinine 1.10 mg/dL 0.50-1.40 One Over Creatinine 0.90 BUN/Creatinine Ratio 16.4 8-20 Calcium 9.4 mg/dL 8.1-9.9 Total Protein 7.2 GM/DL 6.2-8.1 Albumin 4.0 GM/DL 3.2-5.2 Globulin 3.2 GM/DL 2-4 Albumin/Globulin Ratio 1.3 1-3 Bilirubin Total 0.7 mg/dL 0.4-1.5 50 Alkaline Phosphatase 70 U/L 30-110 Alt (SGPT) 19 U/L 14-54 Ast (Sgot) 25 U/L 12-42 eGFR Non- 49.8 > 60 eGFR 64.1 > 60 51 Lipid Profile (Trig/Chol/HDL) 07/15/2011 Triglyceride 86 mg/dL 40-200 Cholesterol 187 mg/dL Less Than 200 52 High Density Lipoprotein 43 mg/dL 40-60 53 Cholesterol/HDL Ratio 4.35 AVERAGE 1-4.44 Low Density Lipoprotein 127 mg/dL High Less Than 100 54 Manual Differential 07/15/2011 Polysegmented Neutrophil 71 % 38-83 Lymphocyte 19 % Low 25-47 Monocyte 7 % 0-13 Eosinophil 2 % 0-6 Basophil 1 % 0-2 Absolute Neutrophil Count 4.5 RBC Morphology NORMAL Ua Inhouse 07/06/2011 Ua Glucose - Ua Bilirubin - Ua Ketones - Ua Specific Riley 1.030 Ua Blood - Ua PH 5.0 Ua Protein - Ua Urobilinogen - Ua Nitrite - Ua Leukocytes 1+ Laboratory test finding 12/14/2010 Troponin-I 0 NG/ML 0-0.06 55 Comp Metabolic Panel 12/14/2010 Sodium 139 mmol/L 135-145 Potassium 4.0 mmol/L 3.5-5.0 Chloride 103 mmol/L 101-111 Co2 (Carbon Dioxide) 29.0 mmol/L 22-32 Anion Gap 7.0 mmol/L 2-11 56 Glucose 98 mg/dL 70-100 BUN 20 mg/dL 6-24 Creatinine 0.91 mg/dL 0.50-1.40 One Over Creatinine 1.00 BUN/Creatinine Ratio 22.0 High 8-20 Calcium 9.4 mg/dL 8.1-9.9 Total Protein 7.5 GM/DL 6.2-8.1 Albumin 4.0 GM/DL 3.2-5.2 Globulin 3.5 GM/DL 2-4 Albumin/Globulin Ratio 1.1 1-3 Bilirubin Total 0.7 mg/dL 0.4-1.5 57 Alkaline Phosphatase 68 U/L 30-110 Alt (SGPT) 26 U/L 14-54 Ast (Sgot) 30 U/L 12-42 eGFR Non- 65.9 > 60 eGFR 79.8 > 60 58 Laboratory test finding 12/14/2010 Troponin-I 0 NG/ML 0-0.06 59 CBC With Electronic Diff 12/14/2010 White Blood Count 9.5 CUMM 4.8-10.8 Red Cell Count 4.78 CUMM 4.2-5.4 Hemoglobin 14.2 g/dL 12.0-16.0 Hematocrit 41 % 35-47 Mean Corpuscular Volume 85 um3 79-97 Mean Corpuscular Hemoglob 30 pg 27-31 Mean Corpuscular HGB Cone 35 g/dL 32-36 Redcell Distribution WDTH 13 % 10.5-15 Platelet Count 236 CUMM 150-450 Mean Platelet Volume 8.3 um3 7.4-10.4 60 Manual Differential 12/14/2010 Polysegmented Neutrophil 82 % 38-83 Band Neutrophil 3 % 0-8 Lymphocyte 10 % Low 25-47 Monocyte 5 % 0-13 Absolute Neutrophil Count 8.0 Anisocytosis SLIGHT Urinalysis 12/14/2010 Ua Color YELLOW Yellow Appearance-Urine CLEAR Clear Specific Riley-Ur 1.011 1.010-1.030 Esterase-Urine NEGATIVE Negative Nitrite NEGATIVE Negative [id number] NEGATIVE Negative Protein-Urine NEGATIVE Negative PH-Urine 8.0 5-9 Blood-Urine NEGATIVE Negative Ketones-Urine 1+ Negative Bilirubin-Ur NEGATIVE Negative Glucose-Urine NEGATIVE Negative Laboratory test finding 12/14/2010 Thyroxine Free 0.93 NG/ML 0.61-1.24 TSH 1.84 MIU/ML 0.34-5.60 Lipid Profile (Trig/Chol/HDL) 05/03/2010 Triglyceride 89 mg/dL 40-200 Cholesterol 203 mg/dL High Less Than 200 61 High Density Lipoprotein 39 mg/dL Low 40-60 62 Cholesterol/HDL Ratio 5.21 AVERAGE High 1-4.44 Low Density Lipoprotein 146 mg/dL High Less Than 100 63 Comp Metabolic Panel 05/03/2010 Sodium 139 mmol/L 135-145 Potassium 4.3 mmol/L 3.5-5.0 Chloride 101 mmol/L 101-111 Co2 (Carbon Dioxide) 31.0 mmol/L 22-32 Anion Gap 7.0 mmol/L 2-11 64 Glucose 90 mg/dL 70-100 65 BUN 19 mg/dL 6-24 Creatinine 1.40 mg/dL 0.50-1.40 One Over Creatinine 0.70 BUN/Creatinine Ratio 13.6 8-20 Calcium 9.2 mg/dL 8.1-9.9 66 Total Protein 7.1 GM/DL 6.2-8.1 Albumin 4.1 GM/DL 3.2-5.2 Globulin 3.0 GM/DL 2-4 Albumin/Globulin Ratio 1.4 1-3 Bilirubin Total 0.8 mg/dL 0.4-1.5 67 Alkaline Phosphatase 79 U/L 30-110 Alt (SGPT) 21 U/L 14-54 Ast (Sgot) 27 U/L 12-42 eGFR Non- 40.2 > 60 eGFR 48.7 > 60 68 CBC With Electronic Diff 05/03/2010 White Blood Count 6.9 CUMM 4.8-10.8 Red Cell Count 4.67 CUMM 4.2-5.4 Hemoglobin 13.7 g/dL 12.0-16.0 Hematocrit 40 % 35-47 Mean Corpuscular Volume 86 um3 79-97 Mean Corpuscular Hemoglob 29 pg 27-31 Mean Corpuscular HGB Cone 34 g/dL 32-36 Redcell Distribution WDTH 13 % 10.5-15 Platelet Count 171 CUMM 150-450 Mean Platelet Volume 12.1 um3 High 7.4-10.4 Gran % 67.8 % 38-83 Lymph % 24.8 % Low 25-47 Mononuclear % 4.7 % 1-9 Eosinophil % 2.4 % 0-6 Basophil % 0.3 % 0-2 Abs Lymphs 1.7 1.0-4.8 Abs Mononuclear 0.3 0-0.8 Absolute Neutrophil Count 4.7 1.5-7.7 Abs Eosinophils 0.2 0-0.6 Abs Basophils 0 0-0.2 Laboratory test finding 05/03/2010 Occult Blood - Stool neg x3 Laboratory test finding 05/03/2010 Cytology 69 <SEE NOTE> Lipid Profile 05/26/2009 Triglyceride 67 mg/dL 40-200 25 (Trig/Chol/HDL) Cholesterol 204 mg/dL High Less Than 200 25, 70 High Density Lipoprotein 49 mg/dL 40-60 25, 71 Cholesterol/HDL Ratio 4.16 AVERAGE 1-4.44 25 Low Density Lipoprotein 142 mg/dL High Less Than 100 25, 72 Comp Metabolic Panel 05/26/2009 Sodium 140 mmol/L 135-145 25 Potassium 3.9 mmol/L 3.5-5.0 25 Chloride 103 mmol/L 101-111 25 Co2 (Carbon Dioxide) 33.0 mmol/L High 22-32 25 Anion Gap 4.0 mmol/L 2-11 25, 73 Glucose 85 mg/dL 70-100 25, 74 BUN 18 mg/dL 6-24 25 Creatinine 0.90 mg/dL 0.50-1.40 25 One Over Creatinine 1.10 25 BUN/Creatinine Ratio 20.0 8-20 25 Calcium 9.4 mg/dL 8.1-9.9 25, 75 Total Protein 6.5 GM/DL 6.2-8.1 25 Albumin 3.9 GM/DL 3.2-5.2 25 Globulin 2.6 GM/DL 2-4 25 Albumin/Globulin Ratio 1.5 1-3 25 Bilirubin Total 0.6 mg/dL 0.4-1.5 25, 76 Alkaline Phosphatase 69 U/L 30-110 25 Alt (SGPT) 25 U/L 14-54 25 Ast (Sgot) 28 U/L 12-42 25 Lipid Profile (Trig/Chol/HDL) 07/01/2008 Triglyceride 69 mg/dL 40-200 25 Cholesterol 167 mg/dL Less Than 200 25, 77 High Density Lipoprotein 48 mg/dL 40-60 25, 78 Cholesterol/HDL Ratio 3.48 AVERAGE 1-4.44 25 Low Density Lipoprotein 105 mg/dL High Less Than 100 25, 79 Urine Micro Inhouse 05/27/2008 Urine Microscopic Inhouse 0-3wbc, 0-2 epi Ua Inhouse 05/27/2008 Ua Glucose - Ua Bilirubin - Ua Ketones - Ua Specific Riley 1.030 Ua Blood - Ua PH 6.5 Ua Protein - Ua Urobilinogen - Ua Nitrite - Ua Leukocytes tr Culture Urine Inhouse 05/27/2008 Colonies no growth Comp Metabolic Panel 05/06/2008 Sodium 139 mmol/L 135-145 Potassium 4.0 mmol/L 3.5-5.0 Chloride 105 mmol/L 101-111 Co2 (Carbon Dioxide) 31.0 mmol/L 22-32 Anion Gap 3.0 mmol/L 2-11 80 Glucose 98 mg/dL 70-105 BUN 21 mg/dL 6-24 Creatinine 1.1 mg/dL 0.5-1.4 One Over Creatinine 0.90 BUN/Creatinine Ratio 19.1 8-20 Calcium 9.2 mg/dL 8.1-9.9 81 Total Protein 6.8 GM/DL 6.2-8.1 Albumin 4.0 GM/DL 3.2-5.2 Globulin 2.8 GM/DL 2-4 Albumin/Globulin Ratio 1.4 1-3 Bilirubin Total 0.6 mg/dL 0.4-1.5 Alkaline Phosphatase 61 U/L 30-110 Alt (SGPT) 21 U/L 14-54 Ast (Sgot) 26 U/L 12-42 CBC With Manual Diff 05/06/2008 White Blood Count 7.1 CUMM 4.8-10.8 Red Cell Count 4.99 CUMM 4.2-5.4 Hemoglobin 14.3 g/dL 12.0-16.0 Hematocrit 42 % 35-47 Mean Corpuscular Volume 84 um3 79-97 Mean Corpuscular Hemoglob 29 pg 27-31 Mean Corpuscular HGB Cone 34 g/dL 32-36 Redcell Distribution WDTH 13 % 10.5-15 Platelet Count 209 CUMM 150-450 Mean Platelet Volume 11.5 um3 High 7.4-10.4 Polysegmented Neutrophil 76 % 38-83 Lymphocyte 19 % 5-47 Monocyte 4 % 0-13 Atypical Lymph 1 % 0-6 Absolute Neutrophil Count 5.3 RBC Morphology NORMAL Fungal Culture, 05/05/2008 Fungus Culture [MAGDI TROPICA 82 Skin,Nails,Hair Skin/Nails <SEE NOTE> Laboratory test finding 05/05/2008 Jesse Smear For [place]^NO YEAST/HYPH 83 Mycology <SEE NOTE> Fungal Identification - Bañuelos [PENICILLIUM SPE <SEE NOTE> 84 Laboratory test finding 05/05/2008 Fungus Culture [MAGDI TROPICA <SEE 85 Skin/Nails NOTE> Jesse Smear For Mycology [place]^NO YEAST/HYPH <SEE NOTE> 86 Lipid Profile 03/25/2008 Cholesterol/HDL Ratio 5.38 AVERAGE High 1-4.44 25 (Trig/Chol/HDL) Cholesterol 210 mg/dL High Less Than 200 25, 87 Triglyceride 82 mg/dL 40-200 25 High Density Lipoprotein 39 mg/dL Low 40-60 25, 88 Low Density Lipoprotein 155 mg/dL High Less Than 100 25, 89 Ua Inhouse 11/15/2007 Ua Glucose - Ua Bilirubin - Ua Ketones - Ua Specific Riley 1.015 Ua Blood - Ua PH 5.0 Ua Protein - Ua Urobilinogen - Ua Nitrite - Ua Leukocytes 3+ Comp Metabolic Panel 11/15/2007 One Over Creatinine 0.90 Anion Gap 7.0 mmol/L 2-11 90 Albumin/Globulin Ratio 1.4 1-3 Albumin 4.2 GM/DL 3.2-5.2 Alkaline Phosphatase 75 U/L 30-110 Alt (SGPT) 25 U/L 14-54 Ast (Sgot) 38 U/L 12-42 BUN 15 mg/dL 6-24 Calcium 10.2 mg/dL 8.7-10.2 Chloride 104 mmol/L 101-111 Co2 (Carbon Dioxide) 31.0 mmol/L 22-32 Globulin 2.9 GM/DL 2-4 Glucose 90 mg/dL 70-105 Potassium 5.1 mmol/L High 3.5-5.0 Sodium 142 mmol/L 135-145 Bilirubin Total 0.9 mg/dL 0.4-1.5 Total Protein 7.1 GM/DL 6.2-8.1 BUN/Creatinine Ratio 13.6 8-20 Creatinine 1.1 mg/dL 0.5-1.4 Lipid Profile 11/15/2007 Cholesterol/HDL Ratio 5.88 AVERAGE High 1-4.44 (Trig/Chol/HDL) Cholesterol 247 mg/dL High Less Than 200 91 Triglyceride 126 mg/dL 40-200 High Density Lipoprotein 42 mg/dL 40-60 Low Density Lipoprotein 180 mg/dL High Less Than 100 92 Laboratory test 11/15/2007 TSH 4.57 MIU/ML 0.34-5.60 finding Laboratory test 08/09/2006 Occult Blood - NEGATIVE X 3 finding Stool Laboratory test 07/12/2006 TSH 5.92 MIU/ML High 0.34-5.60 25 finding Lipid Profile 07/12/2006 Cholesterol 209 mg/dL High Less Than 200 25, 93 (Trig/Chol/HDL) Triglyceride 121 mg/dL 40-200 25 High Density Lipoprotein 43 mg/dL 40-60 25 Low Density Lipoprotein 142 mg/dL High Less Than 100 25, 94 Cholesterol/HDL Ratio 4.86 AVERAGE High 1-4.44 25 Comp Metabolic Panel 07/12/2006 One Over Creatinine 0.90 25 Anion Gap 7.0 mmol/L 2-11 25, 95 Albumin/Globulin Ratio 1.5 1-3 25 Albumin 4.1 GM/DL 3.2-5.2 25 Alkaline Phosphatase 82 U/L 30-110 25 Alt (SGPT) 20 U/L 14-54 25 Ast (Sgot) 29 U/L 12-42 25 BUN 17 mg/dL 6-24 25 Calcium 9.8 mg/dL 8.7-10.2 25 Chloride 103 mmol/L 101-111 25 Co2 (Carbon Dioxide) 29.0 mmol/L 22-32 25 Globulin 2.8 GM/DL 2-4 25 Glucose 100 mg/dL 70-105 25 Potassium 4.1 mmol/L 3.5-5.0 25 Sodium 139 mmol/L 135-145 25 Bilirubin Total 0.9 mg/dL 0.4-1.5 25 Total Protein 6.9 GM/DL 6.2-8.1 25 BUN/Creatinine Ratio 15.5 8-20 25 Creatinine 1.1 mg/dL 0.5-1.4 25 CBC With Manual Diff 07/12/2006 RBC Morphology NORMAL 25 White Blood Count 6.8 CUMM 4.8-10.8 25 Hematocrit 44 % 35-47 25 Hemoglobin 14.9 g/dL 12.0-16.0 25 Mean Corpuscular HGB Cone 34 g/dL 32-36 25 Mean Corpuscular Hemoglob 29 pg 27-31 25 Mean Corpuscular Volume 86 um3 79-97 25 Mean Platelet Volume 11.8 um3 High 7.4-10.4 25 Platelet Count 251 CUMM 150-450 25 Polysegmented Neutrophil 68 % 38-83 25 Red Cell Count 5.18 CUMM 4.2-5.4 25 Redcell Distribution WDTH 13 % 10.5-15 25 Absolute Neutrophil Count 4.6 25 Band Neutrophil 1 % 0-8 25 Eosenophil 3 % 0-6 25 Lymphocyte 25 % 5-47 25 Monocyte 3 % 0-13 25 Laboratory test finding 07/11/2006 Cytology <SEE NOTE> 96 1 [id number] 2 SEE RESULT BELOW Name: NARGIS TY : [address]: Bree RUEDA Acct: [id number] Unit: [id number] AGE: 72 Location: [facility] Re05/14/18 SEX: F Status: REG REF SPEC: [id number] ALBA: 05/14/[address] [facility] [address]: Bree RUEDA REQ: [id number] RECD: 05/14/18 STATUS: RES _ SOURCE: STOOL SPDESC: ORDERED: Occult Bl, Diag/R, C. diff PCR/S, Stool Culture/R, O P: Giar/Crypt/ R COMMENTS: [id number] Procedure Result Reported Site Stool Culture PENDING Stool Specimen Description Final 05/14/18- 1345 ML Stool Color Brown Stool Form Semi-formed Stool Consistency Liquid with Solid pieces Shiga Toxin 1 2 PENDING C. difficile PCR Final 05/14/18- 1428 ML Organism 1 027 Presumptive NEGATIVE Organism 2 Toxigenic C.diff NEGATIVE Stool Occult Blood (1) PENDING O P: Giardia/Cryptospor Screen PENDING * ML - Main Lab . END OF REPORT DEPARTMENT OF PATHOLOGY, [address] [place] [address] Jun Diaz M.D. Director [facility] # [id number] 3 Interpretation: Borderline (50.1-120.0 mcg/g) REFERENCE VALUE <=50.0 (Normal) Test Performed by: [facility] - [address] [address] 4 SEE RESULT BELOW Name: NARGIS TY : [address]: Bree RUEDA Acct: [id number] Unit: [id number] AGE: 72 Location: [facility] Re05/14/18 SEX: F Status: REG REF SPEC: [id number] ALBA: 05/14/[address] [facility] [address]: Bree RUEDA REQ: [id number] RECD: 05/14/18 STATUS: COMP _ SOURCE: STOOL SPDESC: ORDERED: Occult Bl, Diag/R, C. diff PCR/S, Stool Culture/R, O P: Benjamin/Crypt/ R COMMENTS: [id number] Procedure Result Reported Site Stool Culture Final 05/16/18- 1430 ML Result No enteric pathogens isolated Testing for Salmonella, Shigella, Aeromonas, Plesiomonas, Yersinia and Campylobacter are included in a Stool Culture. Vibrio spp not routinely tested for in a stool culture. If testing is desired, please request specifically when placing test order. Sensitivities not routinely performed on stool isolates, as antibiotics may prolong the carriage rate of bacteria. Please contact the microbiology lab if sensitivities are required. Stool Specimen Description Final 05/14/18- 1345 ML Stool Color Brown Stool Form Semi-formed Stool Consistency Liquid with Solid pieces Shiga Toxin 1 2 Final 05/15/18- 1149 ML Organism 1 Negative Shiga Toxin 1 2 CONTINUED ON NEXT PAGE DEPARTMENT OF PATHOLOGY, [address] [place] [address] Jun Diaz M.D. Director [facility] # [id number] Patient: NARGIS TY [id number] (Continued) Specimen: [id number] Collected: 05/14/18 Received: 05/14/18-1033 (Continued) Procedure Result Reported Site Shiga Toxin 1 2 Final (continued) 05/15/18- 1149 Immunochromatographic Assay C. difficile PCR Final 05/14/18- 1428 ML Organism 1 027 Presumptive NEGATIVE Organism 2 Toxigenic C.diff NEGATIVE Stool Occult Blood (1) Final 05/14/18- 1442 ML Stool Occult Blood Negative Collection Date (1) 05/14/18 O P: Giardia/Cryptospor Screen Final 05/14/18- 1524 ML Organism 1 Neg Cryptosporidium/Giardia Giardia and cryptosporidium antigen testing performed by enzyme immunoassay. If patient is immunocompromised or has traveled to or is from a developing country, a full ova and parasite exam with microscopic (OPMIC) is recommended. All samples will be held one month in case full ova and parasite testing is requested. Contact the Microbiology Department at [phone]. TEST LIMITATIONS: As with all diagnostic procedures, the results obtained should be used in conjunction with other clinical information available the physician, including confirmation by another method. Negative results can occur in samples containing antigen below lower limits of detection of the assay. One negative specimen does not rule out the possibility of a parasitic infection. To improve detection it is recommended that three specimens be collected on separate days over a period of not more than seven days. The use of colonic washes, aspirates or other diluted sample types has not been established and could affect the performance of the assay. Stool samples contaminated with an CONTINUED ON NEXT PAGE DEPARTMENT OF PATHOLOGY, [address] [place] [address] Jun Diaz M.D. Director [facility] # [id number] Patient: NARGIS TY [id number] (Continued) Specimen: [id number] Collected: 05/14/18 Received: 05/14/18 (Continued) Procedure Result Reported Site O P: Giardia/Cryptospor Screen Final (continued) 05/14/18 152 oily or particulate base (eg. Barium, mineral oil etc.) could interfere with the test and are not recommended. * ML - Main Lab . END OF REPORT DEPARTMENT OF PATHOLOGY, [address] [place] [address] Jun Diaz M.D. Director [facility] # [id number] 5 Therapeutic target for the treatment of diabetes mellitus patients is <7% HBA1C, and in selective patients <6.0%. Please refer to [place] [employer] diabetic care guidelines for further information. 6 FASTING 12 HOUR 7 Consistent with previous results on 08/04/2017. 8 Because ethnic data is not always readily available, this report includes an eGFR for both -Americans and non- Americans. The National Kidney Disease Education Program (NKDEP) does not endorse the use of the MDRD equation for patients that are not between the ages of 18 and 70, are , have extremes of body size, muscle mass, or nutritional status, or are non- or non-. According to the National Kidney Foundation, irrespective of diagnosis, the stage of the disease is based on the level of kidney function: Stage Description GFR(mL/min/1.73 m(2)) 1 Kidney damage with normal or decreased GFR 90 2 Kidney damage with mild decrease in GFR 60-89 3 Moderate decrease in GFR 30-59 4 Severe decrease in GFR 15-29 5 Kidney failure <15 (or dialysis) 9 Desirable <150 Borderline high 150-199 High 200-499 Very High >500 10 Desirable <200 Borderline high 200-239 High >239 11 Low <40 Desirable: 40-60 High: >60 12 Desirable: <100 mg/dL Near Optimal: 100-129 mg/dL Borderline High: 130-159 mg/dL High: 160-189 mg/dL Very High: >189 mg/dL 13 FASTING 12 HOUR 14 Because ethnic data is not always readily available, this report includes an eGFR for both -Americans and non- Americans. The National Kidney Disease Education Program (NKDEP) does not endorse the use of the MDRD equation for patients that are not between the ages of 18 and 70, are , have extremes of body size, muscle mass, or nutritional status, or are non- or non-. According to the National Kidney Foundation, irrespective of diagnosis, the stage of the disease is based on the level of kidney function: Stage Description GFR(mL/min/1.73 m(2)) 1 Kidney damage with normal or decreased GFR 90 2 Kidney damage with mild decrease in GFR 60-89 3 Moderate decrease in GFR 30-59 4 Severe decrease in GFR 15-29 5 Kidney failure <15 (or dialysis) 15 Desirable <150 Borderline high 150-199 High 200-499 Very High >500 16 Desirable <200 Borderline high 200-239 High >239 17 Low <40 Desirable: 40-60 High: >60 18 Desirable: <100 mg/dL Near Optimal: 100-129 mg/dL Borderline High: 130-159 mg/dL High: 160-189 mg/dL Very High: >189 mg/dL 19 Because ethnic data is not always readily available, this report includes an eGFR for both -Americans and non- Americans. The National Kidney Disease Education Program (NKDEP) does not endorse the use of the MDRD equation for patients that are not between the ages of 18 and 70, are , have extremes of body size, muscle mass, or nutritional status, or are non- or non-. According to the National Kidney Foundation, irrespective of diagnosis, the stage of the disease is based on the level of kidney function: Stage Description GFR(mL/min/1.73 m(2)) 1 Kidney damage with normal or decreased GFR 90 2 Kidney damage with mild decrease in GFR 60-89 3 Moderate decrease in GFR 30-59 4 Severe decrease in GFR 15-29 5 Kidney failure <15 (or dialysis) 20 Platelet count confirmed by smear estimate. 21 Desirable <150 Borderline high 150-199 High 200-499 Very High >500 22 Desirable <200 Borderline high 200-239 High >239 23 Low <40 Desirable: 40-60 High: >60 24 Desirable: <100 mg/dL Near Optimal: 100-129 mg/dL Borderline High: 130-159 mg/dL High: 160-189 mg/dL Very High: >189 mg/dL 25 FASTING 26 Because ethnic data is not always readily available, this report includes an eGFR for both -Americans and non- Americans. The National Kidney Disease Education Program (NKDEP) does not endorse the use of the MDRD equation for patients that are not between the ages of 18 and 70, are , have extremes of body size, muscle mass, or nutritional status, or are non- or non-. According to the National Kidney Foundation, irrespective of diagnosis, the stage of the disease is based on the level of kidney function: Stage Description GFR(mL/min/1.73 m(2)) 1 Kidney damage with normal or decreased GFR 90 2 Kidney damage with mild decrease in GFR 60-89 3 Moderate decrease in GFR 30-59 4 Severe decrease in GFR 15-29 5 Kidney failure <15 (or dialysis) 27 Desirable <150 Borderline high 150-199 High 200-499 Very High >500 28 Desirable <200 Borderline high 200-239 High >239 29 Low <40 Desirable: 40-60 High: >60 30 Desirable <100 Near Optimal 100-129 Borderline high 130-159 High 160-189 Very High >189 31 Consistent with previous results. 32 Because ethnic data is not always readily available, this report includes an eGFR for both -Americans and non- Americans. The National Kidney Disease Education Program (NKDEP) does not endorse the use of the MDRD equation for patients that are not between the ages of 18 and 70, are , have extremes of body size, muscle mass, or nutritional status, or are non- or non-. According to the National Kidney Foundation, irrespective of diagnosis, the stage of the disease is based on the level of kidney function: Stage Description GFR(mL/min/1.73 m(2)) 1 Kidney damage with normal or decreased GFR 90 2 Kidney damage with mild decrease in GFR 60-89 3 Moderate decrease in GFR 30-59 4 Severe decrease in GFR 15-29 5 Kidney failure <15 (or dialysis) 33 HDL Interpretation: Undesirable: High Risk: Less than 40 mg/dL Desirable: Low Risk: Greater than 60 mg/dL 34 LDL Interpretation: Low Risk Optimal Level: LDL Less than 100 mg/dL Near or Above Optimal: LDL 100-129 mg/dL Borderline High Risk: LDL 130-159 mg/dL High Risk: LDL 160-189 mg/dL Very High Risk: LDL Greater than 189 mg/dL 35 Results suggest response to immunization or prior exposure to the virus. -- REFERENCE VALUE -- Vaccinated: Positive Unvaccinated: Negative 36 Test Performed by: [place] [address] Athletic Instructor: Kyrie Christensen III, M.D. 37 Because ethnic data is not always readily available, this report includes an eGFR for both -Americans and non- Americans. The National Kidney Disease Education Program (NKDEP) does not endorse the use of the MDRD equation for patients that are not between the ages of 18 and 70, are , have extremes of body size, muscle mass, or nutritional status, or are non- or non-. According to the National Kidney Foundation, irrespective of diagnosis, the stage of the disease is based on the level of kidney function: Stage Description GFR(mL/min/1.73 m(2)) 1 Kidney damage with normal or decreased GFR 90 2 Kidney damage with mild decrease in GFR 60-89 3 Moderate decrease in GFR 30-59 4 Severe decrease in GFR 15-29 5 Kidney failure <15 (or dialysis) 38 HDL Interpretation: Undesirable: High Risk: Less than 40 MG/DL Desirable: Low Risk: Greater than 60 MG/DL 39 LDL Interpretation: Low Risk Optimal Level: LDL Less than 100 MG/DL Near or Above Optimal: LDL 100-129 MG/DL Borderline High Risk: LDL 130-159 MG/DL High Risk: LDL 160-189 MG/DL Very High Risk: LDL Greater than 189 MG/DL 40 Because ethnic data is not always readily available, this report includes an eGFR for both -Americans and non- Americans. The National Kidney Disease Education Program (NKDEP) does not endorse the use of the MDRD equation for patients that are not between the ages of 18 and 70, are , have extremes of body size, muscle mass, or nutritional status, or are non- or non-. According to the National Kidney Foundation, irrespective of diagnosis, the stage of the disease is based on the level of kidney function: Stage Description GFR(mL/min/1.73 m(2)) 1 Kidney damage with normal or decreased GFR 90 2 Kidney damage with mild decrease in GFR 60-89 3 Moderate decrease in GFR 30-59 4 Severe decrease in GFR 15-29 5 Kidney failure <15 (or dialysis) 41 Because ethnic data is not always readily available, this report includes an eGFR for both -Americans and non- Americans. The National Kidney Disease Education Program (NKDEP) does not endorse the use of the MDRD equation for patients that are not between the ages of 18 and 70, are , have extremes of body size, muscle mass, or nutritional status, or are non- or non-. According to the National Kidney Foundation, irrespective of diagnosis, the stage of the disease is based on the level of kidney function: Stage Description GFR(mL/min/1.73 m(2)) 1 Kidney damage with normal or decreased GFR 90 2 Kidney damage with mild decrease in GFR 60-89 3 Moderate decrease in GFR 30-59 4 Severe decrease in GFR 15-29 5 Kidney failure <15 (or dialysis) 42 CHOLESTEROL INTERPRETATION: Desirable: Less than 200 MG/DL Borderline-High Risk: 200-239 MG/DL High-Risk: 240 MG/DL and over 43 HDL INTERPRETATION: Undesirable: High Risk: Less than 40 MG/DL Desirable: Low Risk: Greater than 60 MG/DL 44 LDL INTERPRETATION: Low Risk Optimal Level: LDL Less than 100 MG/DL Near or Above Optimal: LDL 100-129 MG/DL Borderline High Risk: LDL 130-159 MG/DL High Risk: LDL 160-189 MG/DL Very High Risk: LDL Greater than 189 MG/DL 45 Anion gap measurement may be of limited value in the presence of any alkalosis, especially in a combined acid base disorder. . 46 A metabolite of Naproxen, O-desmethylnaproxen, has been shown to interfere with the Jendrassik-Onancock method for measuring total bilirubin. Samples from patients who have taken Naproxen have shown spurious elevation in total bilirubin levels. 47 Because ethnic data is not always readily available, this report includes an eGFR for both -Americans and non- Americans. The National Kidney Disease Education Program (NKDEP) does not endorse the use of the MDRD equation for patients that are not between the ages of 18 and 70, are , have extremes of body size, muscle mass, or nutritional status, or are non- or non-. According to the National Kidney Foundation, irrespective of diagnosis, the stage of the disease is based on the level of kidney function: Stage Description GFR(mL/min/1.73 m(2)) 1 Kidney damage with normal or decreased GFR 90 2 Kidney damage with mild decrease in GFR 60-89 3 Moderate decrease in GFR 30-59 4 Severe decrease in GFR 15-29 5 Kidney failure <15 (or dialysis) 48 Giant Platelets 49 Anion gap measurement may be of limited value in the presence of any alkalosis, especially in a combined acid base disorder. . 50 A metabolite of Naproxen, O-desmethylnaproxen, has been shown to interfere with the Jendrassik-Onancock method for measuring total bilirubin. Samples from patients who have taken Naproxen have shown spurious elevation in total bilirubin levels. 51 Because ethnic data is not always readily available, this report includes an eGFR for both -Americans and non- Americans. The National Kidney Disease Education Program (NKDEP) does not endorse the use of the MDRD equation for patients that are not between the ages of 18 and 70, are , have extremes of body size, muscle mass, or nutritional status, or are non- or non-. According to the National Kidney Foundation, irrespective of diagnosis, the stage of the disease is based on the level of kidney function: Stage Description GFR(mL/min/1.73 m(2)) 1 Kidney damage with normal or decreased GFR 90 2 Kidney damage with mild decrease in GFR 60-89 3 Moderate decrease in GFR 30-59 4 Severe decrease in GFR 15-29 5 Kidney failure <15 (or dialysis) 52 CHOLESTEROL INTERPRETATION: Desirable: Less than 200 MG/DL Borderline-High Risk: 200-239 MG/DL High-Risk: 240 MG/DL and over 53 HDL INTERPRETATION: Undesirable: High Risk: Less than 40 MG/DL Desirable: Low Risk: Greater than 60 MG/DL 54 LDL INTERPRETATION: Low Risk Optimal Level: LDL Less than 100 MG/DL Near or Above Optimal: LDL 100-129 MG/DL Borderline High Risk: LDL 130-159 MG/DL High Risk: LDL 160-189 MG/DL Very High Risk: LDL Greater than 189 MG/DL 55 New Reference Range and Interpretation effective 08/30/2002 TnI (ng/ml) INTERPRETATION Less Than 0.06 ng/mL NOT SUPPORTIVE OF DIAGNOSIS OF NM 0.06 - 0.50 ng/ml INDETERMINATE: SUGGEST SERIAL STUDIES IF CLINICALLY INDICATED. Greater than 0.5 ng/mL CONSISTENT WITH DIAGNOSIS OF NM . 56 Anion gap measurement may be of limited value in the presence of any alkalosis, especially in a combined acid base disorder. . 57 A metabolite of Naproxen, O-desmethylnaproxen, has been shown to interfere with the Jendrassik-Onancock method for measuring total bilirubin. Samples from patients who have taken Naproxen have shown spurious elevation in total bilirubin levels. 58 Because ethnic data is not always readily available, this report includes an eGFR for both -Americans and non- Americans. The National Kidney Disease Education Program (NKDEP) does not endorse the use of the MDRD equation for patients that are not between the ages of 18 and 70, are , have extremes of body size, muscle mass, or nutritional status, or are non- or non-. According to the National Kidney Foundation, irrespective of diagnosis, the stage of the disease is based on the level of kidney function: Stage Description GFR(mL/min/1.73 m(2)) 1 Kidney damage with normal or decreased GFR 90 2 Kidney damage with mild decrease in GFR 60-89 3 Moderate decrease in GFR 30-59 4 Severe decrease in GFR 15-29 5 Kidney failure <15 (or dialysis) 59 New Reference Range and Interpretation effective 08/30/2002 TnI (ng/ml) INTERPRETATION Less Than 0.06 ng/mL NOT SUPPORTIVE OF DIAGNOSIS OF NM 0.06 - 0.50 ng/ml INDETERMINATE: SUGGEST SERIAL STUDIES IF CLINICALLY INDICATED. Greater than 0.5 ng/mL CONSISTENT WITH DIAGNOSIS OF NM . 60 Neutrophilia % Lymphopenia % 61 CHOLESTEROL INTERPRETATION: Desirable: Less than 200 MG/DL Borderline-High Risk: 200-239 MG/DL High-Risk: 240 MG/DL and over 62 HDL INTERPRETATION: Undesirable: High Risk: Less than 40 MG/DL Desirable: Low Risk: Greater than 60 MG/DL 63 LDL INTERPRETATION: Low Risk Optimal Level: LDL Less than 100 MG/DL Near or Above Optimal: LDL 100-129 MG/DL Borderline High Risk: LDL 130-159 MG/DL High Risk: LDL 160-189 MG/DL Very High Risk: LDL Greater than 189 MG/DL 64 Anion gap measurement may be of limited value in the presence of any alkalosis, especially in a combined acid base disorder. . 65 Note change in reference range as of 07/17/08. The change was based on recommendations from the [place] [employer]. 66 Please note change in reference range effective 08 . 67 A metabolite of Naproxen, O-desmethylnaproxen, has been shown to interfere with the Jendrassik-Onancock method for measuring total bilirubin. Samples from patients who have taken Naproxen have shown spurious elevation in total bilirubin levels. 68 Because ethnic data is not always readily available, this report includes an eGFR for both -Americans and non- Americans. The National Kidney Disease Education Program (NKDEP) does not endorse the use of the MDRD equation for patients that are not between the ages of 18 and 70, are , have extremes of body size, muscle mass, or nutritional status, or are non- or non-. According to the National Kidney Foundation, irrespective of diagnosis, the stage of the disease is based on the level of kidney function: Stage Description GFR(mL/min/1.73 m(2)) 1 Kidney damage with normal or decreased GFR 90 2 Kidney damage with mild decrease in GFR 60-89 3 Moderate decrease in GFR 30-59 4 Severe decrease in GFR 15-29 5 Kidney failure <15 (or dialysis) 69 ---- RUN DATE: 05/05/10 [facility] NMI LIVE PAGE 1 RUN TIME: 1158 Specimen Inquiry RUN USER: INTERFACE -- Name: NARGIS TY Status: REG REF Re05/03/10 Age/Sex: 64/F [facility]#: [id number] [facility] -- Specimen: [id number] Spec Date: 05/03/[address]: Bree RUEDA Spec Type: CYTOLOGY Received: 05/04/10-1454 Copies to: SOURCE ECTOCERVICAL/ENDOCERVICAL Thin Prep with Reflex HPV Test PATIENT INFORMATION ACTUAL COLLECTION DATE: 05/03/10 ? No POST MENOPAUSAL? Yes HYSTERECTOMY? No ADEQUACY OF SPECIMEN Satisfactory for evaluation * Transformation zone component cannot be definitely identified due to prese nce * of atrophy or other hormonal changes. * DIAGNOSIS NEGATIVE FOR INTRAEPITHELIAL LESION OR MALIGNANCY * Reactive cellular changes associated with * Atrophy with inflammation ( atrophic vaginitis ) * This Pap test was evaluated with the assistance of the ThinPrep Pap Test Imaging System. Due to cytologic findings at the microbiology soil scientist microscope, comprehensive manual rescreening by a Building Cleaning Supervisor was required. The Pap Smear is a screening test designed to aid in the detection of premalign ant and malignant conditions of the uterine cervix. It is not a diagnostic procedure a nd should not be used as the sole means of detecting cervical cancer. Both false- positiv e and false-negative reports do occur. Depending on your risk status, a Pap smear rohit uld be obtained and evaluated every one to three years. Initial evaluation performed by Kaleigh MONTAÑO([facility]) 05/05/10 -- DEPARTMENT OF PATHOLOGY, [address] [place] [address] [facility] Permit #[id number] Luis Gilbert M.D. Medical Office Technician Dir tarik -- -- RUN DATE: 05/05/10 [facility] NMI LIVE PAGE 2 RUN TIME: 1158 Specimen Inquiry RUN USER: INTERFACE -- Name: NARGIS TY Status: REG REF Re05/03/10 Age/Sex: 64/F Unit#: [id number] Location: [facility] Miranda : 45 -- -- CONTINUED -- Final Interpretation electronically signed by: JUN DIAZ MD 05/05/10 11 57 -- -- DEPARTMENT OF PATHOLOGY, [address] [place] [address] [facility] Permit #[id number] Luis Gilbert M.D. Assistant Dir ector -- 70 CHOLESTEROL INTERPRETATION: Desirable: Less than 200 MG/DL Borderline-High Risk: 200-239 MG/DL High-Risk: 240 MG/DL and over 71 HDL INTERPRETATION: Undesirable: High Risk: Less than 40 MG/DL Desirable: Low Risk: Greater than 60 MG/DL 72 LDL INTERPRETATION: Low Risk Optimal Level: LDL Less than 100 MG/DL Near or Above Optimal: LDL 100-129 MG/DL Borderline High Risk: LDL 130-159 MG/DL High Risk: LDL 160-189 MG/DL Very High Risk: LDL Greater than 189 MG/DL 73 Anion gap measurement may be of limited value in the presence of any alkalosis, especially in a combined acid base disorder. . 74 Note change in reference range as of 07/17/08. The change was based on recommendations from the [place] [employer]. 75 Please note change in reference range effective 08 . 76 A metabolite of Naproxen, O-desmethylnaproxen, has been shown to interfere with the Jendrassik-Onancock method for measuring total bilirubin. Samples from patients who have taken Naproxen have shown spurious elevation in total bilirubin levels. 77 CHOLESTEROL INTERPRETATION: Desirable: Less than 200 MG/DL Borderline-High Risk: 200-239 MG/DL High-Risk: 240 MG/DL and over 78 HDL INTERPRETATION: Undesirable: High Risk: Less than 40 MG/DL Desirable: Low Risk: Greater than 60 MG/DL 79 LDL INTERPRETATION: Low Risk Optimal Level: LDL Less than 100 MG/DL Near or Above Optimal: LDL 100-129 MG/DL Borderline High Risk: LDL 130-159 MG/DL High Risk: LDL 160-189 MG/DL Very High Risk: LDL Greater than 189 MG/DL 80 Anion gap measurement may be of limited value in the presence of any alkalosis, especially in a combined acid base disorder. . 81 Please note change in reference range effective 08 . 82 [MAGDI TROPICALIS] GREEN [MOLD] - ID TO FOLLOW UNDER SEPARATE REPORT NO ADDITIONAL GROWTH AFTER 3 WEEKS MAGDI TROPICALIS MOLD 83 [place]^NO YEAST/HYPHAE OBSERVED^FS 84 [PENICILLIUM SPECIES] Organism identification by DNA sequencing. The performance characteristics for DNA sequencing were determined by Lab Medicine [facility] Pathology, [facility]. It has not been cleared by the FDA. Testing is performed pursuant to agreements with [employer] and [employer]. Test performed by: [employer] [address], [place] [address] PENICILLIUM SPECIES 85 [MAGDI TROPICALIS] GREEN [MOLD] - ID TO FOLLOW UNDER SEPARATE REPORT MAGDI TROPICALIS MOLD 86 [place]^NO YEAST/HYPHAE OBSERVED^FS 87 CHOLESTEROL INTERPRETATION: Desirable: Less than 200 MG/DL Borderline-High Risk: 200-239 MG/DL High-Risk: 240 MG/DL and over 88 HDL INTERPRETATION: Undesirable: High Risk: Less than 40 MG/DL Desirable: Low Risk: Greater than 60 MG/DL 89 LDL INTERPRETATION: Low Risk Optimal Level: LDL Less than 100 MG/DL Near or Above Optimal: LDL 100-129 MG/DL Borderline High Risk: LDL 130-159 MG/DL High Risk: LDL 160-189 MG/DL Very High Risk: LDL Greater than 189 MG/DL 90 Anion gap measurement may be of limited value in the presence of any alkalosis, especially in a combined acid base disorder. . 91 Classification: High . 92 CALCULATED LDL APPROXIMATES THE VALUE OF A DIRECT LDL MEASUREMENT. Classification: High . 93 Classification: Borderline High . 94 CALCULATED LDL APPROXIMATES THE VALUE OF A DIRECT LDL MEASUREMENT. Classification: Borderline High . 95 Anion gap measurement may be of limited value in the presence of any alkalosis, especially in a combined acid base disorder. . 96 ---- RUN DATE: 07/17/06 [facility] NMI LIVE PAGE 1 RUN TIME: 1559 Specimen Inquiry RUN USER: INTERFACE [id number] NARGIS TY 60/F <REG REF 07/11> ([id number]) RSP Beatriz Riley MD. -- Specimen: [id number] Spec Date: 07/11/[address]: Beatriz Riley MD. Spec Type: CYTOLOGY Received: 07/13/06-1228 Copies to: SOURCE ECTOCERVICAL/ENDOCERVICAL Thin Prep with Reflex HPV Test PATIENT INFORMATION ACTUAL COLLECTION DATE: 07/11/06 ? NO POST MENOPAUSAL? No HYSTERECTOMY? No PREVIOUS ABNORMAL PAP SMEARS No ADEQUACY OF SPECIMEN Satisfactory for evaluation * Transformation zone component identified * DIAGNOSIS NEGATIVE FOR INTRAEPITHELIAL LESION OR MALIGNANCY * The Pap Smear is a screening test designed to aid in the detection of premalign ant and malignant conditions of the uterine cervix. It is not a diagnostic procedure an d should not be used as the sole means of detecting cervical cancer. Both false-positive and false-negative reports do occur. Depending on your risk status, a Pap smear rohit uld be obtained and evaluated every one to three years. Signed Nedra COCHRAN(ASCP) 07/17/06 -- -- DEPARTMENT OF PATHOLOGY, [address] [place] [address] [facility] Permit #[id number] Levi Samuel II, M.D. Director Jun Diaz M.D. Medical Office Technician D irector -- Procedures Date CPT Code Description Status Comment 07/28/2017 Mammogram Completed 2017:benign; prefers yearly exams. 03/09/2016 73824 Omt 7-8 Body Regions Completed 02/04/2016 25385 Omt 7-8 Body Regions Completed 12/31/2015 83712 Omt 3 To 4 Body Regions Completed Involved 02/25/2015 Colonoscopy Completed 2014:normal; mckenzie. wnl but suboptimal prep recommended qyr hemmocult and f/u in 5 to 7 yr or [id number] 03/27/2008 Bone Mineral Density Test Completed progression in osteoporosis lumbar spine documented in 2005 . osteopenic hip also progressive. medication encouraged. Encounters Type Date Location Provider CPT E/M Dx Office Visit 05/22/2018 2:00p Main Office Blair Sarabia 15530 R19.7 Office Visit 05/08/2018 1:40p Main Office Blair Sarabia 10516 R19.7 R10.9 F17.210 R09.89 Office Visit 03/09/2016 2:45p Main Office Rusty Williamson D.O. 86639 M99.08 M99.01 M99.02 M99.03 M99.05 M99.04 M99.00 M25.662 M25.512 Office Visit 02/08/2016 4:30p Main Office Rusty Williamson D.O. 68817 B02.9 Office Visit 02/04/2016 1:45p Main Office Rusty Williamson D.O. 59013 M25.512 M25.562 S42.002A M99.01 M99.08 M99.00 M99.02 M99.03 M99.04 M99.05 Office Visit 12/31/2015 2:30p Main Office Rusty Williamson D.O. 51395 M99.03 M99.05 M99.04 M54.5 M79.1 Office Visit 03/30/2015 1:45p Main Office Rusty Williamson D.O. 85647 461.0 Office Visit 02/10/2015 1:15p Main Office Rusty Williamson D.O. 14373 599.5 455.0 790.21 Office Visit 12/10/2012 1:40p Main Office Chilo SarabiaAStefany 09967 790.21 790.6 272.0 110.1 Office Visit 07/26/2010 4:20p Main Office Bree Herrera P.AStefany 93969 466.0 Office Visit 05/03/2010 2:00p Main Office Bree Herrera P.A. 94767 110.1 272.0 V76.2 V76.10 V76.51 V72.31 V70.8 V70.0 Office Visit 05/12/2009 2:15p [place] [address] V76.10 272.0 Office Visit 05/27/2008 9:15a Main Office Yaron Domínguez M.D. 31555 788.1 Office Visit 05/05/2008 4:00p [place] [address] 110.1 Office Visit 11/15/2007 9:15a [place] [address] 719.41 V76.51 V76.2 272.0 733.00 244.9 V76.10 V06.5 V07.2 V81.6 Office Visit 07/11/2006 8:55a [place] [address] 719.41 272.0 V76.2 V76.41 V72.31 V76.51 Office Visit 06/19/2006 2:30p Main Office mack 63285 729.5 Plan of Care Future Appointment(s):08/07/2018 3:00 pm - Radiology, Dexa & X-Ray at Main Swkaeb7408/07/2018 3:30 pm - Rusty Willaimson D.O. 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
--- NOTE | 2018-06-21 13:47 | ED ---
Throat Pain/Nasal Congestion - HPI Summary HPI Summary: 72 presents with intermittent sore throat for the past couple months. She has had sore throat for the past 2 weeks. She also admits to cough along with the sore throat. She's states she has been coughing up mucus and has had post nasal drip that seems to get caught in her throat. She denies any difficulty swallowing. No rash. She states that she thinks that it is related to mold. She denies abdominal pain. No nausea and no vomiting. No chest pain or shortness of breath. Cough is productive. She does smoke 2 cigarettes a day. She is on multiple allergy medications including Flonase and Benadryl. She also uses a nettipot. - History of Current Complaint Chief Complaint: UCRespiratory Time Seen by Provider: 06/21/18 13:37 - Allergies/Home Medications Allergies/Adverse Reactions: Allergies Allergy/AdvReac Type Severity Reaction Status Date / Time aspirin Allergy Anaphylatic Verified 06/21/18 13:37 Shock ibuprofen Allergy Anaphylatic Verified 06/21/18 13:37 Shock mold Allergy Congestion Verified 06/21/18 13:37 wheat Allergy Congestion Verified 06/21/18 13:37 dairy Allergy Congestion Uncoded 06/21/18 13:37 environmental Allergy Congestion Uncoded 06/21/18 13:37 Home Medications: Home Medications diphenhydrAMINE HCl [Benadryl Allergy] 1 tab PO Q4HR PRN 06/21/18 [History Confirmed 06/21/18] PMH/Surg Hx/FS Hx/Imm Hx Endocrine/Hematology History: Denies: Hx Diabetes, Hx Thyroid Disease Cardiovascular History: Denies: Hx Congestive Heart Failure, Hx Deep Vein Thrombosis, Hx Hypertension , Hx Myocardial Infarction, Hx Pacemaker/ICD Respiratory History: Denies: Hx Asthma, Hx Chronic Obstructive Pulmonary Disease (COPD), Hx Lung Cancer GI History: Denies: Hx Gall Bladder Disease, Hx Gastrointestinal Bleed, Hx Ulcer, Hx Urosepsis History: Denies: Hx Kidney Stones, Hx Renal Disease Neurological History: Denies: Hx Dementia, Hx Migraine, Hx Seizures, Hx Transient Ischemic Attacks (TIA) Psychiatric History: Denies: Hx Anxiety, Hx Depression, Hx Schizophrenia, Hx Bipolar Disorder - Cancer History Hx Chemotherapy: No Hx Radiation Therapy: No - Surgical History Surgery Procedure, Year, and Place: tubal ligation Infectious Disease History: No Infectious Disease History: Reports: Hx Shingles - 02/2016 Denies: Hx Clostridium Difficile, Hx Hepatitis, Hx Human Immunodeficiency Virus (HIV), Hx of Known/Suspected MRSA, Hx Tuberculosis, Hx Known/Suspected VRE , Hx Known/Suspected VRSA, History Other Infectious Disease, Traveled Outside the [place] in Last 30 Days - Family History Known Family History: Negative: Cardiac Disease, Hypertension - Social History Alcohol Use: Rare Substance Use Type: Reports: None Smoking Status (MU): Light Every Day Tobacco Smoker Type: Cigarettes Amount Used/How Often: 1-2 cigs per day Length of Time of Smoking/Using Tobacco: 50 years Have You Smoked in the Last Year: Yes Review of Systems Negative: Fever Positive: Sore Throat Negative: Chest Pain Positive: Cough. Negative: Shortness Of Breath Negative: Abdominal Pain All Other Systems Reviewed And Are Negative: Yes Physical Exam Triage Information Reviewed: Yes Vital Signs On Initial Exam: Initial Vitals Temp Pulse Resp BP Pulse Ox 97 F 76 18 128/71 95 06/21/18 13:31 06/21/18 13:31 06/21/18 13:31 06/21/18 13:31 06/21/18 13:31 Vital Signs Reviewed: Yes Appearance: Positive: Well-Appearing Skin: Positive: Warm, Dry Head/Face: Positive: Normal Head/Face Inspection Eyes: Positive: Normal, Conjunctiva Clear ENT: Positive: Pharynx normal - cobblestone, TMs normal Neck: Positive: Supple, Nontender, No Lymphadenopathy, Other: - no thyromegaly or nodules left Respiratory/Lung Sounds: Positive: Clear to Auscultation, Breath Sounds Present Cardiovascular: Positive: Normal, RRR Abdomen Description: Positive: Nontender, Soft Bowel Sounds: Positive: Present Musculoskeletal: Positive: Normal Neurological: Positive: Normal Psychiatric: Positive: Normal Diagnostics - Vital Signs Vital Signs Temp Pulse Resp BP Pulse Ox 06/21/18 13:31 97 F 76 18 128/71 95 - Laboratory Lab Statement: Any lab studies that have been ordered have been reviewed, and results considered in the medical decision making process. - Radiology chest Xray Interpretation: Positive (See Comments) - copd Radiology Interpretation Completed By: Radiologist EENT Course/Dx - Course Course Of Treatment: 72 presents with intermittent sore throat for the past couple months. She has had sore throat for the past 2 weeks. She also admits to cough along with the sore throat. She's states she has been coughing up mucus and has had post nasal drip that seems to get caught in her throat. She denies any difficulty swallowing. No rash. She states that she thinks that it is related to mold. She denies abdominal pain. No nausea and no vomiting. No chest pain or shortness of breath. Cough is productive. She does smoke 2 cigarettes a day. She is on multiple allergy medications including Flonase and Benadryl. She also uses a nettipot. on exam pharynx has cobblestone, uvula midline, soft palate symmetric. chest xray shows copd. will have follow up with primary for PFT to see if needs be on inhaled steriod. will place on inhaler and singulair for nasal congestion. patient understand and agrees with plan. - Differential Diagnoses Differential Diagnoses: Allergic Rhinitis, Sinusitis, Tonsilitis, URI/Bronchitis , Other - pneumonia - Diagnoses Provider Diagnoses: Sore throat, COPD (chronic obstructive pulmonary disease) Discharge - Sign-Out/Discharge Documenting (check all that apply): Patient Departure - Discharge Plan Condition: Good Disposition: HOME Prescriptions: Albuterol HFA INHALER* [Ventolin HFA Inhaler*] 1 puff INH Q6H PRN #1 mdi PRN Reason: Cough Montelukast Sodium TAB* [Singulair TAB*] 10 mg PO DAILY #14 tab Patient Education Materials: Allergic Rhinitis (ED) Referrals: Rusty Williamson DO [Primary Care Provider] - Additional Instructions: will add on singular once a day will add on inhaler 1 puff as needed every 6 hours for cough continue allergy medication Follow up with primary within 5 days as may benefit from pulmonary function testing Return to ED if develop any new or worsening symptoms Per institutional requirements, I have reviewed the chart, however, I was not consulted specifically or made aware of this patient by the above midlevel provider. I did not personally evaluate, interact with , or disposition this patient. - Billing Disposition and Condition Condition: GOOD Disposition: Home
--- NOTE | 2018-06-21 14:48 | RAD ---
HISTORY: cough, sore throat COMPARISONS: December 06, 2017 VIEWS: 4: Frontal dual-energy and lateral views of the chest. FINDINGS: CARDIOMEDIASTINAL SILHOUETTE: The cardiomediastinal silhouette is normal. SWEETIE: The sweetie are normal. PLEURA: The costophrenic angles are sharp. No pleural abnormalities are noted. LUNG PARENCHYMA: There is hyperinflation with flattening of the diaphragm and expansion of the AP diameter of the chest. There is a coarse reticular pattern of opacification similar to previous examinations. ABDOMEN: The upper abdomen is clear. There is no subphrenic gas. BONES AND SOFT TISSUES: No bone or soft tissue abnormalities are noted. OTHER: None. IMPRESSION: COPD WITH STABLE FIBROTIC CHANGES
[2018-06-21 15:16] VITALS: BP 128/71
== END 2018-06-21 15:04 | disposition home or self-care (01) ==
LOC: UCEAST 13:23
DX: J44.9 Chronic obstructive pulmonary disease, unspecified (principal); J02.9 Acute pharyngitis, unspecified; F17.210 Nicotine dependence, cigarettes, uncomplicated; Z88.6 Allergy status to analgesic agent; Z91.09 Other allergy status, other than to drugs and biological substances; Z91.018 Allergy to other foods; Z91.011 Allergy to milk products
CPT/HCPCS: 71046; 99212; G0463

== ENCOUNTER 2019-01-18 13:58 | Emergency (ER) | payer MEDICARE, BC ==
[2019-01-18 14:04] VITALS: BP 145/66
--- NOTE | 2019-01-18 14:49 | UC ---
Complaint Female HPI - HPI Summary HPI Summary: Patient complaining of 24 hours of burning with urination. - History Of Current Complaint Chief Complaint: UCGU Stated Complaint: POSS UTI Time Seen by Provider: 01/18/19 14:27 Hx Obtained From: Patient Hx Last Menstrual Period: Years ago. ?: No Onset/Duration: Sudden Onset, Lasting Days - 1 Timing: Constant Severity Initially: Mild Severity Currently: Severe Pain Intensity: 8 - Allergies/Home Medications Allergies/Adverse Reactions: Allergies Allergy/AdvReac Type Severity Reaction Status Date / Time aspirin Allergy Anaphylatic Verified 01/18/19 14:04 Shock ibuprofen Allergy Anaphylatic Verified 01/18/19 14:04 Shock mold Allergy Congestion Verified 01/18/19 14:04 wheat Allergy Congestion Verified 01/18/19 14:04 dairy Allergy Congestion Uncoded 01/18/19 14:04 environmental Allergy Congestion Uncoded 01/18/19 14:04 Home Medications: Home Medications Clobetasol 0.05% OINT* 01/18/19 [History] Methotrexate TAB* 2.5 mg PO DAILY 01/18/19 [History Confirmed 01/18/19] Tacrolimus 0.1% OINT (NF) 1 01/18/19 [History] PMH/Surg Hx/FS Hx/Imm Hx Previously Healthy: Yes Other History Of: Negative For: HIV, Hepatitis B, Hepatitis C - Surgical History Surgical History: Yes Surgery Procedure, Year, and Place: tubal ligation - Family History Known Family History: Negative: Cardiac Disease, Hypertension - Social History Alcohol Use: Rare Substance Use Type: None Smoking Status (MU): Former Smoker Type: Cigarettes Amount Used/How Often: 1-2 cigs per day Length of Time of Smoking/Using Tobacco: 50 years Have You Smoked in the Last Year: Yes Household Exposure Type: Cigarettes - Immunization History Most Recent Influenza Vaccination: 08/27/14 Review of Systems All Other Systems Reviewed And Are Negative: Yes Constitutional: Positive: Negative Skin: Positive: Negative Eyes: Positive: Negative ENT: Positive: Negative Respiratory: Positive: Negative Cardiovascular: Positive: Negative Gastrointestinal: Positive: Negative Genitourinary: Positive: Dysuria, Hematuria, Frequency, Urgency Motor: Positive: Negative Neurovascular: Positive: Negative Musculoskeletal: Positive: Negative Neurological: Positive: Negative Psychological: Positive: Negative Is Patient Immunocompromised?: No Physical Exam Triage Information Reviewed: Yes Appearance: Well-Appearing, Well-Nourished, Pain Distress Vital Signs: Initial Vital Signs Temp 97.2 F 01/18/19 14:01 Pulse 82 01/18/19 14:01 Resp 18 01/18/19 14:01 BP 145/66 01/18/19 14:01 Pulse Ox 98 01/18/19 14:01 Vital Signs Reviewed: Yes Eye Exam: Normal ENT Exam: Normal Dental Exam: Normal Respiratory Exam: Normal Cardiovascular Exam: Normal Abdomen Description: Positive: Nontender, No Organomegaly, Soft, CVA Tenderness (R) - neg, CVA Tenderness (L) - neg Musculoskeletal Exam: Normal Neurological Exam: Normal Psychological Exam: Normal Skin Exam: Normal Complaint Female Dx - Course Course Of Treatment: hx obtained, exam performed ,meds reviewed, UA positive for Leuks, treated with keflex and culture sent - Differential Dx/Diagnosis Differential Diagnosis/HQI/PQRI: Urinary Tract Infection Provider Diagnosis: UTI (urinary tract infection) Discharge - Sign-Out/Discharge Documenting (check all that apply): Patient Departure All imaging exams completed and their final reports reviewed: No Studies - Discharge Plan Condition: Stable Disposition: HOME Prescriptions: Cephalexin CAP* [Keflex CAP*] 500 mg PO BID #14 cap Patient Education Materials: Urinary Tract Infection in Women (DC) Referrals: Rusty Williamson DO [Primary Care Provider] - Additional Instructions: 1. take the medication as prescribed. 2. Increase fluid intake - Billing Disposition and Condition Condition: STABLE Disposition: Home
== END 2019-01-18 15:04 | disposition home or self-care (01) ==
LOC: UCEAST 13:58
DX: N39.0 Urinary tract infection, site not specified (principal); Z88.6 Allergy status to analgesic agent; Z91.011 Allergy to milk products; Z88.8 Allergy status to other drugs, medicaments and biological substances; Z91.018 Allergy to other foods
CPT/HCPCS: 81003; 87077; 87086; 87186; 99212; G0463

== ENCOUNTER 2019-08-29 13:28 | Emergency (ER) | payer MEDICARE, BC ==
--- OUTSIDE RECORDS SUMMARY | 2019-08-29 13:36 | XMS REPORT | Continuity of Care Document ---
:1945 External Reference #:[id number] Author Name Rusty Williamson D.O. Address [address] [place] [address] Care Team Providers Name Role Phone Robby Ruiz MD - Nephrology Care Team Information Mental Health Orderly [phone] Problems Active Problems Provider Date Onychomycosis Blair Sarabia Onset: 07/06/2011 Prolapse of urethra Rusty Williamson D.O. Onset: 02/10/2015 Internal hemorrhoids without complication Rusty Williamson D.O. Onset: 2014 Social History Type Date Description Comments Sex Unknown Tobacco Use Reviewed: 11/27/05 Current Cigarette resumed smoking after Smoker 1-5 Cigarettes one year off. 2 Daily cigarettes Smoking Status Reviewed: 08/12/19 Current Cigarette resumed smoking after Smoker 1-5 Cigarettes one year off. 2 Daily cigarettes ETOH Use Rare Alcohol Use Recreational Drug Use Denies Drug Use Tobacco Use Start: Unknown Light tobacco smoker 2 cigarettes a day (10 or fewer 1ppw at age 25. cigarettes/day) currently 1/2ppw. < 30pack year history Allergies, Adverse Reactions, Alerts Active Allergies Reaction Severity Comments Date Aspirin 07/09/2012 Ibuprofen 07/09/2012 Mucinex 07/08/2010 Medications Active Medications SIG Qnty Indications Ordering Date Provider Dhea Apply to external 30Grams N89.8 Rusty Williamson, 08/12/2019 1% Cream urethral meatus D.O. twice daily Cetirizine HCL 1 by mouth every Unknown 08/11/2019 10mg day Tablets Fiber Well (OTC) daily Unknown 08/11/2019 Multivitamin Gummies daily Unknown 08/11/2019 L-Lysine one po daily Unknown 08/11/2019 500mg Tablets Bromelain one po daily Unknown 08/11/2019 500mg Tablets Protopic apply daily to Unknown 06/10/2019 0.1% Ointment rash daily for itch Clobetasol Propionate apply to active Unknown 06/10/2019 rash on affected 0.05% Ointment areas daiky until resolved Alendronate Sodium take 1 tablet 12tabs Rusty Williamson, 08/07/2018 35mg every week 30 D.O. Tablets mins before meal with 8 oz of water. do not lie down for 30 minutes after taking. Ventolin HFA inhale 1 puff by Unknown 06/21/2018 mouth every 6 108(90Base) mcg/Act hours if needed Aerosol for cough Ginkgo Biloba Daily Unknown 05/21/2018 120mg Capsules Echinacea as Needed Unknown 05/21/2018 500mg Capsules Coq10 1 po daily Unknown 05/07/2018 50mg Krill Oil Antwon Red 1 daily Unknown 05/07/2018 350mg Capsules Vitamin B Complex 1 tab q day Unknown 07/09/2013 Tablets Pycnogenol 1 q day prn Unknown 07/09/2013 60mg Vitamin D-3 One Tablet PO OTC Unknown 07/05/2011 1000Unit Daily Tablets Probiotic Acidophilus One Tab PO Daily OTC Unknown 07/05/2011 30Billion Capsules Grape Seed 1 po prn OTC Unknown 07/05/2011 50mg Capsules Newberry One PO Daily as OTC Unknown 07/05/2011 150mg Needed Silver Biotics 1 tsp. daily prn OTC Unknown 07/05/2011 Vit C 2 po qd 0units [facility] 06/19/2006 500mg Tylenol 1/2 Q 4H prn Temp 10units [facility] 06/19/2006 325mg Suppositor N-Acetyl Cystine one po daily otc Unknown 600mg Calcium With Mag six po daily OTC Unknown Citrate And D3 1000mg/500mg/100 Iu Immunizations CPT Code Status Date Vaccine Lot # [id number] Given 08/12/2019 Influenza Vaccine, Inactivated, Subunit, Adjuvanted, For Intrmusc 36709 Given 08/07/2018 Influenza Vaccine Split Virus Preservative Free Im [id number] Use 02722 Given 07/26/2017 Influenza Virus Vaccine, Quadrivalent, Split, [id number] Preservative Free 25296 Given 09/26/2016 Influenza Virus Vaccine, Quadrivalent, Split, Preservative Free 47778 Given 08/18/2015 Flu, Split Virus 3Yrs 00112 Given 07/16/2015 Prevnar 13 [id number] 71823 Given 09/30/2014 Flu, Split Virus 3Yrs 70204 Given 09/15/2013 Flu, Split Virus 3Yrs 17912 Given 07/10/2013 Zostavax [id number] 35068 Given 09/03/2012 Flu, Split Virus 3Yrs 43711 Given 07/09/2012 Pneumococcal Immunization [id number] 86810 Given 10/17/2011 Flu, Split Virus 3Yrs 58558 Given 11/15/2007 Td Immunization [id number] Vital Signs Date Vital Result Comment 08/12/2019 1:46pm BP Systolic 138 mmHg BP Diastolic 72 mmHg Height 64 inches 5'4" Weight 146.00 lb BMI (Body Mass Index) 25.1 kg/m2 08/07/2018 3:36pm BP Systolic 126 mmHg BP Diastolic 68 mmHg Height 64.5 inches 5'4.50" Weight 135.00 lb BMI (Body Mass Index) 22.8 kg/m2 Results Test Date Facility Test Result H/L Range Note Laboratory test 08/12/2019 [facility] TSH (Thyroid <pending> finding [address] [place] [address] [phone] Laboratory test 08/12/2019 [facility] Vitamin D <pending> finding [address] [place] [address] [phone] Hemoglobin A1c (Glyco HGB) <pending> Procedures Date Code Description Status 07/28/2017 [id number] Mammogram Completed 02/25/2015 [id number] Colonoscopy Completed 03/27/2008 [id number] Bone Mineral Density Test Completed Medical Devices Description No Information Available Encounters Type Date Location Provider Dx Diagnosis Office Visit 08/12/2019 Main Office Rusty Williamson J44.9 Chronic obstructive 1:30p D.O. pulmonary disease, unspecified F17.201 Nicotine dependence, unspecified, in remission R35.0 Frequency of micturition H25.13 Age-related nuclear cataract, bilateral N89.8 Other specified noninflammatory disorders of vagina R05 Cough Z00.00 Encntr for general adult medical exam w/o abnormal findings M81.0 Age-related osteoporosis w/o current pathological fracture M85.88 Oth disrd of bone density and structure, other site R73.01 Impaired fasting glucose E78.00 Pure hypercholesterolemia, unspecified Z23 Encounter for immunization Z68.25 Body mass index (BMI) 25.0-25.9, adult Assessments Date Code Description Provider 08/12/2019 J44.9 Chronic obstructive pulmonary disease, Rusty Williamson D.O. unspecified 08/12/2019 F17.201 Nicotine dependence, unspecified, in Rusty Williamson D.O. remission 08/12/2019 R35.0 Frequency of micturition Rusty Williamson D.O. 08/12/2019 H25.13 Age-related nuclear cataract, bilateral Rusty Williamson D.O. 08/12/2019 N89.8 Other specified noninflammatory disorders of Rusty Williamson D.O. vagina 08/12/2019 R05 Cough Rusty Williamson D.O. 08/12/2019 Z00.00 Encounter for general adult medical Rusty Williamson D.O. examination without abnormal findings 08/12/2019 M81.0 Age-related osteoporosis without current Rusty Williamson D.O. pathological fracture 08/12/2019 M85.88 Other specified disorders of bone density and Rusty Williamson D.O. structure, other site 08/12/2019 R73.01 Impaired fasting glucose Rusty Williamson D.O. 08/12/2019 E78.00 Pure hypercholesterolemia, unspecified Rusty Williamson D.O. 08/12/2019 Z23 Encounter for immunization Rusty Williamson D.O. 08/12/2019 Z68.25 Body mass index (BMI) 25.0-25.9, adult Rusty Williamson D.O. Plan of Treatment Future Appointment(s):08/17/2020 2:00 pm - Rusty Williamson D.O. at [facility]08/12/2019 - Rusty Williamson D.O.J44.9 Chronic obstructive pulmonary disease, eurfvqyjiwaJ54.201 Nicotine dependence, unspecified, in arpgwgywsL95.0 Frequency of mhckjsyjmrsD37.13 Age-related nuclear cataract, fpdwyrrdaM38.8 Other specified noninflammatory disorders of vaginaNew Medication:Dhea 1 % - Apply to external urethral meatus twice uyaqaJ75 FtxkfY74.00 Encounter for general adult medical examination without abnormal findingsFollow up:1 year DMHMM81.0 Age-related osteoporosis without current pathological hcpznovwZ32.88 Other specified disorders of bone density and structure, other siteR73.01 Impaired fasting ugacxzyQ32.00 Pure hypercholesterolemia, iimguxwltbtC62 Encounter for nfhhhxtgtmncU33.25 Body mass index (BMI) 25.0-25.9, adult Functional Status Description No Information Available Mental Status Description No Information Available Referrals Description No Information Available
[2019-08-29 13:42] VITALS: BP 130/55
--- NOTE | 2019-08-29 14:43 | UC ---
Respiratory Complaint HPI - HPI Summary HPI Summary: 74 year old female with PMH + for tob use presents with cough x 2-3 weeks, increasing over past week with "rattling" in chest, worse with lying down Recently had check up with physician ~ 3 weeks ago, no medical problems. Denies cardaic history, chest pain, Shortness of breath, lower leg swelling. + ear pressure, mild. No sore throat, no fever, + chills intermittently. - History of Current Complaint Chief Complaint: UCGeneralIllness Stated Complaint: UPPER RESP ISSUE Time Seen by Provider: 08/29/19 13:39 Hx Obtained From: Patient Hx Last Menstrual Period: Years ago. ?: No Onset/Duration: Gradual Onset, Lasting Weeks Severity Currently: None Pain Intensity: 0 Pain Scale Used: 0-10 Numeric Character: Cough: Productive - hernandez sputum Aggravating Factors: Deep Breaths Alleviating Factors: Upright Position Associated Signs And Symptoms: Positive: Chills, URI, Nasal Congestion. Negative: Dyspnea, Fever, Pleuritic Chest Pain, Wheezing, Hemoptysis, Dizziness , Calf Pain, Calf Swelling, Edema - Allergies/Home Medications Allergies/Adverse Reactions: Allergies Allergy/AdvReac Type Severity Reaction Status Date / Time aspirin Allergy Anaphylatic Verified 08/30/19 09:57 Shock ibuprofen Allergy Anaphylatic Verified 08/30/19 09:57 Shock mold Allergy Congestion Verified 08/30/19 09:57 wheat Allergy Congestion Verified 08/30/19 09:57 dairy Allergy Congestion Uncoded 08/30/19 09:57 environmental Allergy Congestion Uncoded 08/30/19 09:57 Home Medications: Home Medications Alendronate TAB (NF) [Fosamax TAB (NF)] 10 mg PO WEEKLY 08/29/19 [History Confirmed 08/29/19] Tacrolimus [Protopic] 0.1 % TOPICAL DAILY 08/29/19 [History Confirmed 08/29/19] PMH/Surg Hx/FS Hx/Imm Hx Previously Healthy: Yes - denies pulmonary/ cardiac disease Other History Of: Negative For: HIV, Hepatitis B, Hepatitis C - Surgical History Surgical History: Yes Surgery Procedure, Year, and Place: tubal ligation - Family History Known Family History: Positive: Non-Contributory Negative: Cardiac Disease, Hypertension - Social History Alcohol Use: Rare Substance Use Type: None Smoking Status (MU): Former Smoker Type: Cigarettes Amount Used/How Often: 1-2 cigs per day Length of Time of Smoking/Using Tobacco: 50 years Have You Smoked in the Last Year: Yes Household Exposure Type: Cigarettes - Immunization History Most Recent Influenza Vaccination: 08/27/14 Review of Systems All Other Systems Reviewed And Are Negative: Yes Constitutional: Positive: Chills, Fatigue ENT: Positive: Ear Ache, Sinus Congestion Respiratory: Positive: Cough. Negative: Shortness Of Breath Cardiovascular: Negative: Palpitations, Chest Pain Psychological: Positive: Negative Is Patient Immunocompromised?: No Physical Exam Triage Information Reviewed: Yes Appearance: No Pain Distress, Well-Nourished, Ill-Appearing - minimal Vital Signs: Initial Vital Signs Temp 98.8 F 08/29/19 13:38 Pulse 65 08/29/19 13:38 Resp 18 08/29/19 13:38 BP 130/55 08/29/19 13:38 Pulse Ox 97 08/29/19 13:38 Vital Signs Reviewed: Yes Eyes: Positive: Conjunctiva Clear ENT: Positive: TMs normal, Uvula midline. Negative: Pharyngeal erythema, TM bulging, TM dull, TM red, Tonsillar swelling, Tonsillar exudate, Sinus tenderness Neck: Positive: Supple, Nontender, No Lymphadenopathy. Negative: Nuchal Rigidity, Enlarged Nodes @ Respiratory: Positive: Chest non-tender, Normal breath sounds, No respiratory distress, No accessory muscle use, Crackles - b/l bases. Negative: Rhonchi, Stridor, Wheezing, Expiration Cardiovascular: Positive: RRR, No Murmur Abdomen Description: Negative: CVA Tenderness (R), CVA Tenderness (L) Neurological: Positive: Alert Skin Exam: Normal Respiratory Course/Dx - Course Course Of Treatment: Emphysema with probably CAP based on symptoms. CXR- emphysema, patient unaware of dx, was seen on prior films. 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 - Antibiotics as directed - Increase fluid - Over the counter medications as needed for symptoms, such as mucinex - Tylenol/ Motrin as needed for pain - Follow up with primary physician if no improvement within 2-3 day - GO to ER with increased shortness of breath, increased cough, fever > 102 - Differential Dx/Diagnosis Differential Diagnosis/HQI/PQRI: Lower Resp Infection, Sinusitis Provider Diagnosis: CAP (community acquired pneumonia) Discharge ED - Sign-Out/Discharge Documenting (check all that apply): Patient Departure All imaging exams completed and their final reports reviewed: Yes - Discharge Plan Condition: Good Disposition: HOME Prescriptions: Levofloxacin TAB* [Levaquin TAB*] 750 mg PO DAILY #7 tab Patient Education Materials: Community Acquired Pneumonia (ED) Referrals: Rusty Williamson DO [Primary Care Provider] - Jaja Tanner MD [Medical Doctor] - 2 Weeks (Pulmonology- follow up for Emphysema seen on chest X-ray ) Additional Instructions: - ANtibitoics as directed - Increase fluid - Over the counter medications as needed for symptoms, such as mucinex - Tylenol/ Motrin as needed for pain - Follow up with primary physician if no improvement within 2-3 day - GO to ER with increased shortness of breath, increased cough, fever > 102 - Billing Disposition and Condition Condition: GOOD Disposition: Home - Attestation Statements Provider Attestation: I was available for consult. This patient was seen by the MARIANNE. The patient was not presented to, seen by, or examined by me. -Cain
== END 2019-08-29 14:57 | disposition home or self-care (01) ==
LOC: UCEAST 13:28
DX: J18.9 Pneumonia, unspecified organism (principal); J43.9 Emphysema, unspecified; Z72.0 Tobacco use; Z88.8 Allergy status to other drugs, medicaments and biological substances; Z91.018 Allergy to other foods; Z91.09 Other allergy status, other than to drugs and biological substances; Z91.011 Allergy to milk products
CPT/HCPCS: 71046; 99212; G0463

== ENCOUNTER 2019-08-30 09:53 | Emergency (ER) | payer MEDICARE, BC ==
[2019-08-30 10:39] VITALS: BP 157/71
--- NOTE | 2019-08-30 10:50 | UC ---
General HPI - HPI Summary HPI Summary: Ms. Saxena was here yesterday for a cough she had had for a couple weeks. A chest x-ray showed only COPD and she was treated with Levaquin. She states that she got up this morning and was a little bit lightheaded and had difficulty concentrating. She could not complete tasks and began to feel worse and worse as the morning wore on. She comes in complaining of lightheadedness. She has no spinning sensation, is only very slightly if at all nauseated and it does not change with position. She denies any weakness or focal neurological complaint. She has no chest pain or shortness of breath. She has tingling in her bilateral hands and knees. - History of Current Complaint Chief Complaint: UCDizziness Stated Complaint: NAUSEA, AND DIZZINESS Time Seen by Provider: 08/30/19 10:13 Hx Last Menstrual Period: Years ago. Pain Intensity: 0 - Allergy/Home Medications Allergies/Adverse Reactions: Allergies Allergy/AdvReac Type Severity Reaction Status Date / Time aspirin Allergy Anaphylatic Verified 08/30/19 09:57 Shock ibuprofen Allergy Anaphylatic Verified 08/30/19 09:57 Shock mold Allergy Congestion Verified 08/30/19 09:57 wheat Allergy Congestion Verified 08/30/19 09:57 dairy Allergy Congestion Uncoded 08/30/19 09:57 environmental Allergy Congestion Uncoded 08/30/19 09:57 PMH/Surg Hx/FS Hx/Imm Hx Respiratory History: COPD Other History Of: Negative For: HIV, Hepatitis B, Hepatitis C - Surgical History Surgical History: Yes Surgery Procedure, Year, and Place: tubal ligation - Family History Known Family History: Positive: Non-Contributory Negative: Cardiac Disease, Hypertension - Social History Alcohol Use: None Substance Use Type: None Smoking Status (MU): Former Smoker Type: Cigarettes Amount Used/How Often: 1-2 cigs per day Length of Time of Smoking/Using Tobacco: 50 years Have You Smoked in the Last Year: Yes Household Exposure Type: Cigarettes - Immunization History Most Recent Influenza Vaccination: 08/27/14 Review of Systems All Other Systems Reviewed And Are Negative: Yes Constitutional: Positive: Fatigue Skin: Positive: Negative Eyes: Positive: Negative ENT: Positive: Negative Respiratory: Positive: Cough Cardiovascular: Positive: Negative Motor: Positive: Negative Neurovascular: Positive: Negative Musculoskeletal: Positive: Negative Neurological: Positive: Other - Difficulty concentrating Psychological: Positive: Negative Is Patient Immunocompromised?: No Physical Exam - Summary Physical Exam Summary: She is nontoxic in appearance with stable vitals. Triage Information Reviewed: Yes Appearance: Well-Appearing Vital Signs: Initial Vital Signs Temp 96.9 F 08/30/19 09:58 Pulse 72 08/30/19 09:58 Resp 16 08/30/19 09:58 BP 155/74 08/30/19 09:58 Pulse Ox 98 08/30/19 09:58 Vital Signs Reviewed: Yes Eye Exam: Normal - She has nonfatigueing in horizontal nystagmus at rest. ENT Exam: Normal Neck exam: Normal Respiratory Exam: Normal Cardiovascular Exam: Normal Neurological Exam: Normal Psychological Exam: Normal Diagnostics - EKG Cardiac Rate: NL Cardiac Rhythm: Sinus: Normal Ectopy: None ST Segment: Non-Specific - Unchanged for 12/14/10 EKG Comparison: No Significant Change Course/Dx - Course Course Of Treatment: I do not have an explanation for her symptoms other than a reaction to the Levaquin. I think she needs further workup possibly consisting of monitoring, labs and perhaps hydration. I recommended that her take her up to the emergency department for further evaluation to rule out anything worse than a medication reaction. - Diagnoses Provider Diagnosis: Near syncope Discharge ED - Sign-Out/Discharge Documenting (check all that apply): Patient Departure All imaging exams completed and their final reports reviewed: No Studies - Discharge Plan Condition: Stable Disposition: HOME-RECOMMEND TO ED Patient Education Materials: Near Syncope (ED) Referrals: Rusty Williamson DO [Primary Care Provider] - Additional Instructions: Please have your drive you up to the emergency department at this time. This may indeed merely be a reaction to the new medication that was started, however I cannot assess that without further testing which is available only in the emergency department. - Billing Disposition and Condition Condition: STABLE Disposition: Home-Recommend to ED
== END 2019-08-30 11:14 | disposition home health service (06) ==
LOC: UCEAST 09:53
DX: R55 Syncope and collapse (principal); R05 Cough; J44.9 Chronic obstructive pulmonary disease, unspecified; Z88.8 Allergy status to other drugs, medicaments and biological substances; Z91.09 Other allergy status, other than to drugs and biological substances; Z91.018 Allergy to other foods; Z87.891 Personal history of nicotine dependence
CPT/HCPCS: 93005; 99212; G0463

== ENCOUNTER 2019-12-18 13:09 | Day surgery (SDC) | payer MEDICARE, BC ==
[~2019-12-18 13:09] MED LIST: Acetaminophen TAB* 325 MG PO PRN; Buffered Lidocaine 1% SYRIN* 1 ML/SYRINGE INTRADERM ONE
[2019-12-18] MEDS ORDERED: Lidocaine 2% w/ EPI 1:200,000* 20 ML SDV VIAL ONE (14:01)
[2019-12-18] MEDS ORDERED: Cyclopentolate 1% OPTH.SOL* 2 ML BTL ONE (14:01)
[2019-12-18] MEDS ORDERED: Ketorolac 0.5% OPHTH (NF) 0.5 % 5 ML BTL ONE (14:01)
[2019-12-18] MEDS ORDERED: Neomycin/Polymy/Dex OPTH.SUSP* MAXITROL 0.1% 5 ML ONE (14:01)
[2019-12-18] MEDS ORDERED: Lidocaine 1% MPF ** 5 ML VIAL ONE (14:01)
[2019-12-18] MEDS ORDERED: acetaZOLAMIDE TAB* 250 MG ONE (14:01)
[2019-12-18] MEDS ORDERED: Phenylephrine OPHTH SOL 2.5%* 2 ML ONE (14:01)
[2019-12-18] MEDS ORDERED: Proparacaine 0.5% OPHTH.SOL* 15 ML BTL ONE (14:01)
[2019-12-18] MEDS ORDERED: fentaNYL* 50 MCG/ML 2 ML VIAL (100 MCG VIAL) ONE (15:28)
[2019-12-18] MEDS ORDERED: Midazolam* 1 MG/ML 5 ML VIAL (5 MG) ONE (15:28)
[2019-12-18 16:36] VITALS: BP 97/48
--- NOTE | 2019-12-19 00:47 | OP ---
DATE OF OPERATION: 12/18/19 - [facility] DATE OF : 45 SURGEON: Robby Ordonez M.D. PREOPERATIVE DIAGNOSIS: Cataract, right eye. POSTOPERATIVE DIAGNOSIS: Cataract, right eye. OPERATIVE PROCEDURE: Extracapsular cataract extraction with intraocular lens implant, right eye. DESCRIPTION OF PROCEDURE: The patient was brought to the operating room after being given 1/2% Alcaine with epinephrine drops in the preoperative area. The eye was prepped and draped in the usual sterile fashion. Sterile drape and eyelid speculum were placed. Again, topical 1/2% Alcaine with epinephrine was given. A paracentesis incision was made at the 9 o'clock position with the No.75 blade. Clear cornea incision 2.2 x 2.2-mm was created at the 12 o'clock position starting at the anterior limbus using the 2.2-mm keratome. The anterior chamber was irrigated with 0.4 mL of 1% non-preservative intracameral lidocaine and filled with DisCoVisc. A capsulorrhexis was completed using the cystotome and the Utrata forceps. Hydrodissection was performed with balanced salt solution. The lens nucleus was removed with the Phacoemulsification handpiece without incident. Cortex was removed with the irrigation-aspiration handpiece. The capsular bag was re-inflated using DisCoVisc and an [id number] implant was inserted with the shooter. The irrigation-aspiration handpiece was used to remove all residual DisCoVisc. The eye was refilled with balanced salt solution and the wound checked and found to be watertight. Topical Maxitrol drops were given. [id number]/[facility] #: [id number] [facility]
== END 2019-12-18 16:50 | disposition home or self-care (01) ==
LOC: OREAST 13:09
PROVIDERS: ATTEND Specialist
DX: H25.11 Age-related nuclear cataract, right eye (principal); Z87.891 Personal history of nicotine dependence; J30.89 Other allergic rhinitis; M81.0 Age-related osteoporosis without current pathological fracture
CPT/HCPCS: A9270-GY; J2250; J3010; V2632

== ENCOUNTER 2019-12-25 10:35 | Day surgery (SDC) | payer MEDICARE, BC ==
[2019-12-25] MEDS ORDERED: Midazolam* 1 MG/ML 5 ML VIAL (5 MG) ONE (12:23)
[2019-12-25] MEDS ORDERED: fentaNYL* 50 MCG/ML 2 ML VIAL (100 MCG VIAL) ONE (12:23)
[2019-12-25] MEDS ORDERED: Propofol* 10 MG/ML 20 ML BTL ONE (12:50)
[2019-12-25 13:18] VITALS: BP 104/56
[2019-12-25] MEDS ORDERED: acetaZOLAMIDE TAB* 250 MG ONE (13:25)
[2019-12-25] MEDS ORDERED: Phenylephrine OPHTH SOL 2.5%* 2 ML ONE (13:25)
[2019-12-25] MEDS ORDERED: Ketorolac 0.5% OPHTH (NF) 0.5 % 5 ML BTL ONE (13:25)
[2019-12-25] MEDS ORDERED: Povidone Iodine 5% OPTH* 30 ML BTL ONE (13:25)
[2019-12-25] MEDS ORDERED: Neomycin/Polymy/Dex OPTH.SUSP* MAXITROL 0.1% 5 ML ONE (13:25)
[2019-12-25] MEDS ORDERED: Proparacaine 0.5% OPHTH.SOL* 15 ML BTL ONE (13:25)
[2019-12-25] MEDS ORDERED: Cyclopentolate 1% OPTH.SOL* 2 ML BTL ONE (13:25)
[2019-12-25] MEDS ORDERED: Lidocaine 2% w/ EPI 1:200,000* 20 ML SDV VIAL ONE (13:25)
[2019-12-25] MEDS ORDERED: Lidocaine 1% MPF ** 5 ML VIAL ONE (13:25)
--- NOTE | 2019-12-25 14:53 | OP ---
DATE OF OPERATION: 12/25/2019 - [facility] DATE OF : 1945. SURGEON: Robby Ordonez M.D. PREOPERATIVE DIAGNOSIS: Cataract left eye. POSTOPERATIVE DIAGNOSIS: Cataract left eye. OPERATIVE PROCEDURE: Extracapsular cataract extraction with intraocular lens implant left eye. DESCRIPTION OF PROCEDURE: The patient was brought to the operating room after being given 1/2% Alcaine with epinephrine drops in the preoperative area. The eye was prepped and draped in the usual sterile fashion. Sterile drape and eyelid speculum were placed. Again, topical 1/2% Alcaine with epinephrine was given. A paracentesis incision was made at the 3 o'clock position with the No.75 blade. Clear cornea incision 2.2 x 2.2-mm was created at the 6 o'clock position starting at the anterior limbus using the 2.2-mm keratome. The anterior chamber was irrigated with 0.4 mL of 1% non-preservative intracameral lidocaine and filled with DisCoVisc. A capsulorrhexis was completed using the cystotome and the Utrata forceps. Hydrodissection was performed with balanced salt solution. The lens nucleus was removed with the Phacoemulsification handpiece without incident. Cortex was removed with the irrigation-aspiration handpiece. The capsular bag was re-inflated using DisCoVisc and an [id number] implant was inserted with the shooter. The irrigation-aspiration handpiece was used to remove all residual DisCoVisc. The eye was refilled with balanced salt solution and the wound checked and found to be watertight. Topical Maxitrol drops were given. [id number] #: [id number] [facility]
== END 2019-12-25 13:38 | disposition home or self-care (01) ==
LOC: OREAST 10:35
PROVIDERS: ATTEND Specialist
DX: H25.12 Age-related nuclear cataract, left eye (principal); Z87.891 Personal history of nicotine dependence; M81.0 Age-related osteoporosis without current pathological fracture; F41.9 Anxiety disorder, unspecified
CPT/HCPCS: A9270-GY; J2250; J2704; J3010; V2632

== ENCOUNTER 2023-05-11 09:39 | Inpatient (IN) ==
[2023-05-11 10:45] LABS: ABS Basophils 0.1 10^3/uL (0.0-0.1); ABS Eosinophils 0.1 10^3/uL (0.0-0.5); ABS Lymphocytes 1.4 10^3/uL (1.0-4.8); ABS Monocytes 0.4 10^3/uL (0.0-0.9); ABS Neutrophils 6.1 10^3/uL (1.5-7.6); Eosinophil % 1.3 %; Hematocrit 46.7 % (35-45); Hemoglobin 15.6 g/dL (11.5-14.3); Lymphocyte % 16.8 %; Mean Corpuscular Hemoglobin 27.5 pg (27-33); Mean Corpuscular Hgb Conc 33.4 g/dL (31-36); Mean Corpuscular Volume 82.3 fL (80-97); Mean Platelet Volume 9.2 fL (7.5-11.2); Platelet Count 298 10^3/uL (150-450); Red Blood Count 5.68 10^6/uL (3.63-4.92); Red Cell Distribution Width 15.2 % (12-17); Venous Bicarbonate HCO3 27.1 mmol/L (24-28); White Blood Count 8.1 10^3/uL (3.8-11.8)
[2023-05-11] MEDS ORDERED: Furosemide 40 mg/4 ml IV VIAL IV SLOW PU ONE (10:53)
[2023-05-11 10:55] LABS: INR 1.19 (0.88-1.18)
[2023-05-11 11:03] LABS: Albumin 3.7 g/dL (3.2-5.2); C Reactive Protein 11.1 mg/L (<8.01); Calcium 9.1 mg/dL (8.6-10.3); Creatinine, Serum 0.99 mg/dL (0.51-0.95); Globulin 3.6 g/dL (2-4); Potassium 4.1 mmol/L (3.5-5.0); Total Bilirubin 0.7 mg/dL (0.2-1.0); Total Protein 7.3 g/dL (6.4-8.9); eGFR CKD-EPI 58.7 (>60)
[2023-05-11 12:22] LABS: Urine Appearance Clear; Urine Bilirubin Negative (Negative); Urine Blood Negative (Negative); Urine Color Yellow; Urine Glucose Negative (Negative); Urine Ketones Negative (Negative); Urine Nitrite Negative (Negative); Urine Protein Negative (Negative); Urine Specific Gravity 1.018 (1.002-1.030); Urine Urobilinogen Negative (Negative)
[2023-05-11 12:28] LABS: High Sensitivity Troponin 1 Hr 14 pg/mL (<15)
[2023-05-11] MEDS ORDERED: Albuterol/Ipratropium NEB.SOL (2.5/0.5 MG) 3 ML NEB.SOLN INH PRN (13:04)
[2023-05-11] MEDS: Enoxaparin 30 MG/0.3 ML SYR SUBCUT SCH (16:04)
[2023-05-11] MEDS: SPIRIVA Respimat (tiotropium) 2.5 mcg/inh Inhaler INH SCH (16:35)
[2023-05-11] MEDS: CMCS: Olopatadine 0.1% OPHTH (NF) 1 DROP BTL BOTH EYES SCH (21:47)
[2023-05-12 06:24] LABS: ABS Lymphocytes 1.2 10^3/uL (1.0-4.8); ABS Monocytes 0.2 10^3/uL (0.0-0.9); ABS Neutrophils 4.7 10^3/uL (1.5-7.6); ABS Nucleated RBC 0.01 10^3/ul; Hematocrit 41.3 % (35-45); Hemoglobin 13.6 g/dL (11.5-14.3); Lymphocyte % 18.9 %; Mean Corpuscular Hemoglobin 26.8 pg (27-33); Mean Corpuscular Hgb Conc 32.8 g/dL (31-36); Mean Corpuscular Volume 81.6 fL (80-97); Mean Platelet Volume 10.3 fL (7.5-11.2); Nucleated Red Blood Cells % 0.2 /100 WBC (0.0-0.4); Platelet Count 269 10^3/uL (150-450); Red Blood Count 5.06 10^6/uL (3.63-4.92); Red Cell Distribution Width 14.4 % (12-17); White Blood Count 6.1 10^3/uL (3.8-11.8)
[2023-05-12 06:52] LABS: Calcium 8.8 mg/dL (8.6-10.3); Creatinine, Serum 0.83 mg/dL (0.51-0.95); Magnesium 2.2 mg/dL (1.9-2.7); Potassium 4.4 mmol/L (3.5-5.0); eGFR CKD-EPI 72.6 (>60)
[2023-05-12] MEDS: CMCS: Olopatadine 0.1% OPHTH (NF) 1 DROP BTL BOTH EYES SCH ×2 (07:59→21:10)
[2023-05-12] MEDS: SPIRIVA Respimat (tiotropium) 2.5 mcg/inh Inhaler INH SCH (08:21)
[2023-05-12] MEDS: Enoxaparin 30 MG/0.3 ML SYR SUBCUT SCH (12:22)
[2023-05-12] MEDS ORDERED: Furosemide 40 mg/4 ml IV VIAL IV ONE (16:27)
[2023-05-12] MEDS ORDERED: Magnesium Hydroxide LIQ 30 ML UDC PO PRN (17:04)
[2023-05-12] MEDS: Senna TAB 8.6 mg TAB PO SCH (21:09)
[2023-05-13] MEDS: SPIRIVA Respimat (tiotropium) 2.5 mcg/inh Inhaler INH SCH (07:19)
[2023-05-13] MEDS: CMCS: Olopatadine 0.1% OPHTH (NF) 1 DROP BTL BOTH EYES SCH ×2 (09:04→20:56)
[2023-05-13] MEDS: Senna TAB 8.6 mg TAB PO SCH (09:06)
[2023-05-13] MEDS ORDERED: Furosemide 40 mg/4 ml IV VIAL IV ONE (11:34)
[2023-05-13] MEDS: Enoxaparin 30 MG/0.3 ML SYR SUBCUT SCH (17:47)
[2023-05-14] MEDS: SPIRIVA Respimat (tiotropium) 2.5 mcg/inh Inhaler INH SCH (07:19)
[2023-05-14] MEDS: CMCS: Olopatadine 0.1% OPHTH (NF) 1 DROP BTL BOTH EYES SCH (09:09)
[2023-05-14] MEDS: Senna TAB 8.6 mg TAB PO SCH (09:09)
[2023-05-14 11:04] VITALS: BP 124/62
[2023-05-14] MEDS: Enoxaparin 30 MG/0.3 ML SYR SUBCUT SCH (16:33)
== END 2023-05-14 16:20 | disposition home or self-care (01) | DRG 189 ==
LOC: ED 09:39 → EDHOLD 09:39 → MEDTELE 15:09
PROVIDERS: ADMIT Internal Medicine; ATTEND Internal Medicine